=== PATIENT | male | born 1965 | race Caucasian/White ===

== ENCOUNTER 2020-03-12 18:09 | Emergency (ER) | payer OTHER, SELFPAY ==
[2020-03-12] VITALS (7 sets, daily range): BP systolic 139–172; BP diastolic 94–107; PULSE 62–78; RESP 11–21; TEMP 37.1; O2SAT 96–99
--- NOTE | ~2020-03-12 | CT_ITS ---
EXAMINATION: CT brain wo con DATE: 03/12/2020 20:02 INDICATION: Syncope. Dizziness and lightheadedness. TECHNIQUE: Computed tomography (CT) of the head was performed without intravenous contrast. The mA wa s adjusted according to patient size. Iterative reconstruction technique was employed. The dose-lengt h product was 681.00 mGy-cm. COMPARISON: None FINDINGS: There is no intracranial hemorrhage, acute infarction, or abnormal intracranial mass lesion . The ventricles are normal in size. There is mild mucosal thickening in the paranasal sinuses. The o rbits are normal. The mastoid air cells are normal. IMPRESSION: 1. Normal brain. Reviewed, dictated and finalized at location A. IMPRESSION: 1. Normal brain.
--- NOTE | 2020-03-12 18:11 | ECG_ITS ---
Measurements Intervals [place] Rate: 67 P: -5 WA: 151 QRS: -13 QRSD: 101 T: -5 QT: 377 QTc: 400 Interpretive Statements SINUS RHYTHM CONSIDER INFERIOR INFARCT, AGE INDETERMINATE ABNORMAL ECG Electronically Signed On 03-13-2020 6:55:25 CDT by Oren Muhammad D.O.
--- NOTE | 2020-03-12 18:34 | ED.DIZZY ---
HPI - Dizziness General Chief Complaint: Syncope <Radha Garcia MD - Last Filed: 03/12/20 19:12> Stated Complaint: SYNCOPAL EVENT <Radha Garcia MD - Last Filed: 03/12/20 19:12> Time Seen by Provider: 03/12/20 18:26 <Radha Garcia MD - Last Filed: 03/12/20 19:12> History of Present Illness HPI Narrative: Patient presents with his nurse , for being lightheaded and dizzy while cutting the grass today. She took his blood pressure and it was in the 170s. He has had a couple other episodes in the last couple days while sitting and working. He said it is part dizziness like the room is spinning, he had ear infections as a child, and has had some sinus infections since. He has had no cough or fever. He does not usually have problems in the heat. He sees the nurse practitioner Dr. Ferguson. His is a nurse at the [facility] in the emergency department. <Radha Garcia MD - Last Filed: 03/12/20 19:12> MD elicited complaint: dizziness and lightheadedness <Radha Garcia MD - Last Filed: 03/12/20 19:12> Pertinent past history: other (Vertigo) <Radha Garcia MD - Last Filed: 03/12/20 19:12> Onset (ago): day(s) <Radha Garcia MD - Last Filed: 03/12/20 19:12> Timing: sudden onset <Radha Garcia MD - Last Filed: 03/12/20 19:12> Severity: moderate <Radha Garcia MD - Last Filed: 03/12/20 19:12> Description: sense of movement <Radha Garcia MD - Last Filed: 03/12/20 19:12> History of similar symptoms: No <Radha Garcia MD - Last Filed: 03/12/20 19:12> Associated symptoms: other (Blurry vision on a walk the other night.) <Radha Garcia MD - Last Filed: 03/12/20 19:12> Related Data Home Medications: Home Medications Medication Instructions Recorded Confirmed coenzyme D27-[id number] E 100 mg-100 cap PO 02/04/20 unit capsule multivitamin 1 cap PO DAILY 02/04/20 naproxen 250 mg tablet 250 mg PO BID PRN 02/04/20 <Radha Garcia MD - Last Filed: 03/12/20 19:12> Allergies/Adverse Reactions: Allergies Allergy/AdvReac Type Severity Reaction Status Date / Time poison hever extract Allergy Unknown Rash Verified 02/04/20 12:42 No Known Allergies Allergy Verified 02/04/20 12:42 <Radha Garcia MD - Last Filed: 03/12/20 19:12> Review of Systems Review of Systems: Narrative: CONSTITUTIONAL: Denies fever, chills, or sweats. EYES: Denies visual changes, redness, or discharge. ENT: Denies rhinorrhea, congestion, sore throat, or otalgia. CARDIOVASCULAR: Denies chest pain, palpitations, or edema. RESPIRATORY: Denies cough or dyspnea. GASTROINTESTINAL: Denies abdominal pain, nausea, vomiting, or diarrhea. GENITOURINARY: Denies dysuria or hematuria. SKIN: Denies rash or itching. MUSCULOSKELETAL: Denies back pain, joint pain, or myalgia. NEUROLOGIC: Denies headache, numbness, or weakness. PSYCHIATRIC: Denies anxiety or depression. <Radha Garcia MD - Last Filed: 03/12/20 19:12> [facility] Surgical History Surgical History: Surgical History History of Achilles tendon repair <Radha Garcia MD - Last Filed: 03/12/20 19:12> Family History Family History: Family History (Updated 05/30/14 @ 07:13 by DOCTOR UNKNOWN) Sibling Family history of primary malignant neoplasm of liver Father Family history of coronary artery disease <Radha Garcia MD - Last Filed: 03/12/20 19:12> Social History Social History: Social History Smoking status: Former smoker Tobacco type: cigarettes and smokeless tobacco Smoking end date: 10/03/16 Alcohol intake: current Drinks per week: 4 Substance use: never Gender identity (if verbalized by the patient): Male <Radha Garcia MD - Last Filed: 03/12/20 19:12> Exam Narrative: Exam Narrative: GENERAL: Well-appearing, well-nourished, and in no acute distress. HEAD: Normo
[2020-03-12 18:49] LABS: Basophils Percent Auto 0.6 % (0.2-1.2); Eosinophils Absolute Auto 0.2 K/mm3 (0-0.3); Eosinophils Percent Auto 2.2 % (0-4.4); Hematocrit 45.5 % (42.0-52.0); Hemoglobin 15.8 g/dL (14.0-18.0); Immature Granulocyte Absolute 0.02 K/mm3 (0.00-0.031); Immature Granulocyte Percent A 0.3 % (0-0.5); Lymphocytes Absolute Auto 1.69 K/mm3 (0.9-3.2); Lymphocytes Percent Auto 24.7 % (18.3-44.2); Mean Corpuscular HGB Conc 34.7 g/dl (32-36); Mean Corpuscular Hemoglobin 30.6 pg (26-34); Mean Corpuscular Volume 88.2 fl (80-100); Monocytes Absolute Auto 0.5 K/mm3 (0.1-0.6); Neutrophils Absolute Auto 4.5 K/mm3 (1.3-6.7); Neutrophils Percent Auto 65.2 % (45.5-73.1); Platelet Count Result 235 k/mm3 (150-375); Red Blood Count 5.16 M/mm3 (4.6-6.20); Red Cell Distribution Width 12.4 % (11.5-14.5); White Blood Count 6.8 K/mm3 (4.5-10.0)
[2020-03-12] MEDS: MECLIZINE HCL 25 MG TABLET PO (18:59)
[2020-03-12] MEDS: SODIUM CHLORIDE 0.9% IV 1,000 ML 999 ML IV CONT (18:59)
[2020-03-12 19:03] LABS: Blood Urea Nitrogen 20 mg/dL (9-20); Carbon Dioxide 23 mmol/L (22-30); Chloride 104 mmol/L (98-107); Estimated CRCL calculation 94 ml/min; Estimated Glomerular Filt Rate > 60; Glucose 105 mg/dL (75-110); Potassium 4.2 mmol/L (3.4-5.0); Sodium 136 mmol/L (137-145)
--- NOTE | 2020-03-12 19:08 | PC.NURSE ---
PT INFORMED OF NEED FOR URINE, REFUSING CATH, STATES HE WILL ATTEMPT MARIXA.
--- NOTE | 2020-03-12 19:19 | PC.NURSE ---
pt informed we still need urine by this rn. pt receiving fluids and drinking water at this time, refused straight cath. urinal at bedside.
--- NOTE | 2020-03-12 19:27 | PC.NURSE ---
BEDSIDE REPORT GIVEN TO HENRIQUE KRUSE AT THIS TIME, SHE HAS ASSUMED PT CARE.
[2020-03-12 19:39] LABS: Add Urine Microscopic? NO; Appearance Urine Clear (Clear); Bilirubin Urine Negative (Negative); Blood Urine Negative (Negative); Color Urine Yellow (Yellow); Glucose Urine UA Negative (Negative); Ketones Urine Negative (Negative); Leukocyte Esterase Ur Negative LEU/UL (Negative); Nitrate Urine Negative (Negative); Protein Urine Negative (Negative); Specific Grav Ur 1.021 (1.001-1.035); Urobilinogen Urine Negative mg/dL (<2.0)
== END 2020-03-12 21:13 | disposition home or self-care (01) ==
PROVIDERS: Emergency Medicine; Emergency Provider Emergency Medicine; PCP Family Medicine
DX: R42 Dizziness and giddiness (principal); Z87.891 Personal history of nicotine dependence; R94.31 Abnormal electrocardiogram [ECG] [EKG]
CPT/HCPCS: 36415; 70450; 80048; 81003; 85025; 93005; 96360; 99284; A9270; J7030

== ENCOUNTER 2020-10-07 10:31 | Outpatient (NON) | payer OTHER, SELFPAY ==
[2020-10-07 23:29] LABS: SARS-CoV-2 RNA PCR Positive
== END 2020-10-07 10:32 ==
LOC: ANHCOVIDDT 10:33
PROVIDERS: PCP Family Medicine; Visit Provider Physician Assistant
DX: U07.1 COVID-19 (principal)
CPT/HCPCS: C9803; U0003

== ENCOUNTER 2022-04-07 15:47 | Outpatient (CLI) | payer OTHER, SELFPAY ==
--- NOTE | ~2022-04-07 | US_ITS ---
EXAMINATION: US soft tissue head and neck DATE: 04/07/2022 16:33 INDICATION: Localized swelling, mass or lump in the neck. TECHNIQUE: Grayscale and Doppler ultrasound images of the neck were obtained. COMPARISON: None. FINDINGS: The left lateral neck, superior to the clavicle in an area of swelling and fullness x2-3 da ys was interrogated sonographically, there is no cystic or solid mass present. Normal-appearing lymph node is present. No abnormal color flow. IMPRESSION: 1. No sonographic abnormality in the left lateral neck. Reviewed, dictated and finalized at location K.
== END 2022-04-07 15:48 | disposition home or self-care (01) ==
PROVIDERS: PCP Family Medicine; Visit Provider Nurse Practitioner Family
DX: R22.1 Localized swelling, mass and lump, neck (principal)
CPT/HCPCS: 76536

== ENCOUNTER 2022-04-09 08:37 | Outpatient (CLI) | payer OTHER, SELFPAY ==
--- NOTE | ~2022-04-09 | XR_ITS ---
EXAMINATION: XR shoulder LT min 2V INDICATION: Left shoulder pain TECHNIQUE: Four views of the left shoulder are submitted. COMPARISON: None FINDINGS: Normal alignment. No fracture. There is mild osteoarthritis of the glenohumeral and acromio clavicular joints. Soft tissues are unremarkable. IMPRESSION: 1. Mild osteoarthritis. Reviewed, dictated and finalized at location B. IMPRESSION: 1. Mild osteoarthritis.
--- NOTE | ~2022-04-09 | XR_ITS ---
EXAMINATION: XR sternoclavicular joint BI INDICATION: Left shoulder pain TECHNIQUE: Three views of the sternoclavicular joints are obtained. COMPARISON: None available FINDINGS: Bone alignment is normal. There is no fracture. The soft tissues are unremarkable. IMPRESSION: 1. Unremarkable sternoclavicular joints. Reviewed, dictated and finalized at location B.
== END 2022-04-09 08:38 | disposition home or self-care (01) ==
PROVIDERS: PCP Family Medicine; Visit Provider Nurse Practitioner Family
DX: R22.1 Localized swelling, mass and lump, neck (principal); M19.012 Primary osteoarthritis, left shoulder
CPT/HCPCS: 71130; 73030

== ENCOUNTER 2022-04-26 10:50 | Outpatient (CLI) | payer OTHER, SELFPAY ==
--- NOTE | ~2022-04-26 | MR_ITS ---
EXAMINATION: MR shoulder LT wo con DATE: 04/26/2022 11:39 INDICATION: Left shoulder pain TECHNIQUE: Magnetic resonance imaging (MRI) of the left shoulder was performed without intravenous co ntrast. Sequences included axial PD-weighted FS FSE, coronal oblique PD-weighted FS FSE, coronal obli que T2-weighted FS FSE, sagittal PD-weighted FS FSE, and sagittal T1-weighted SE. COMPARISON: Left shoulder radiographs dated 04/09/2022 FINDINGS: Coracoacromial arch: The acromion undersurface is curved in morphology (type II). The coracoacromial ligament is normal. M oderate acromioclavicular osteoarthritis. Asymmetric prominent subarticular edema with mild cystlike changes at the lateral head of the left clavicle relative to the minimal subarticular edema at the ac romion. This could be related to the osteoarthritis although differential would include superimposed distal clavicular osteolysis. Rotator cuff: Mild supraspinatus and infraspinatus tendinopathy. There is a very small mild intrasubstance tear zack suring approximately 2 to 3 mm AP and involving no greater than one third of the tendon thickness anamika ng the middle facet footplate of the anterior infraspinatus tendon. The teres minor tendon is normal. Subscapularis tendinopathy without tear. Normal rotator cuff muscle bulk and signal. Biceps tendon, glenoid labrum and glenohumeral cartilage: Long head of the biceps tendon is normal. There is a tear of the posterior glenoid labrum beginning a t the 11:00 position superiorly and extending to the 7:00 position inferiorly. There are small gangli on cysts along the peripheral margin of the 8:00-9:00 and at the 7:00 positions of the rim of the gle noid. Prominent marginal osteophytes which replaces a significant portion of the labral tissue at the anterior to inferior glenoid. Mild partial-thickness cartilage loss with smooth chondral surface and without degenerative subchondral changes at the posterior and inferior aspect of the glenoid. The hu meral cartilage is relatively preserved. Fluid: Physiologic amount of fluid in the glenohumeral joint and biceps tendon sheath. No loose osteochondr al bodies. No abnormal fluid signal in the subacromial/subdeltoid bursa consistent to suggest bursiti s. Bones: Normal marrow signal with no edema, fracture or abnormal marrow replacing process. IMPRESSION: 1. Mild glenohumeral osteoarthritis with tear of the posterior superior to posterior inferior glenoid labrum with a few peripheral small para labral cyst. 2. Mild subscapularis, supraspinatus and infraspinatus tendinopathy with very small mild partial-thic kness intrasubstance tear at the footplate of the anterior infraspinatus tendon. 3. Moderate acromioclavicular osteoarthritis with prominent asymmetric clavicular sided subarticular marrow edema which could be reactive related to the osteoarthritis. Differential would also include d istal clavicular osteolysis which can be seen with repetitive microtrauma. Reviewed, dictated and finalized at location A. IMPRESSION: 1. Mild glenohumeral osteoarthritis with tear of the posterior superior to post erior inferior glenoid labrum with a few peripheral small para labral cyst. 2. Mild subscapularis, supraspinatus and infraspinatus tendinopathy with very s mall mild partial-thickness intrasubstance tear at the footplate of the anterio r infraspinatus tendon. 3. Moderate acromioclavicular osteoarthritis with prominent asymmetric clavicul ar sided subarticular marrow edema which could be reactive related to the osteo arthritis. Differential would also include distal clavicular osteolysis which c an be seen with repetitive microtrauma.
== END 2022-04-26 10:51 | disposition home or self-care (01) ==
PROVIDERS: PCP Family Medicine; Visit Provider Nurse Practitioner Family
DX: M19.012 Primary osteoarthritis, left shoulder (principal)
CPT/HCPCS: 73221

== ENCOUNTER 2022-09-20 14:37 | Outpatient (CLI) | payer OTHER, SELFPAY ==
[2022-09-20 15:57] LABS: Influenza A QL RT-PCR Positive (Negative); Influenza B QL RT-PCR Negative (Negative); SARS-CoV-2 RNA PCR Negative
== END 2022-09-20 14:38 | disposition home or self-care (01) ==
LOC: ANHLAB 14:38
PROVIDERS: PCP Family Medicine; Visit Provider Physician Assistant
DX: R50.9 Fever, unspecified (principal); Z20.822 Contact with and (suspected) exposure to COVID-19
CPT/HCPCS: 87636

== ENCOUNTER → 2023-03-09 11:26 | Outpatient (CLI) | payer OTHER, SELFPAY ==
--- NOTE | ~2023-03-09 | XR_ITS ---
Left foot Technique: AP and lateral views were obtained. Clinical History: Pain Findings: No acute fracture or dislocation is seen. Osseous alignment is anatomic. Joint spaces are p reserved without erosive or degenerative change. Soft tissues are unremarkable. Impression: Unremarkable left foot radiographs. Reviewed, dictated and finalized at location . Impression: Unremarkable left foot radiographs.
== END ==
PROVIDERS: PCP Family Medicine; Visit Provider Family Medicine
DX: M79.673 Pain in unspecified foot (principal)
CPT/HCPCS: 73620

== ENCOUNTER 2023-03-25 07:57 | Outpatient (CLI) | payer OTHER, SELFPAY ==
--- NOTE | 2023-03-25 08:13 | ECG_ITS ---
Measurements Intervals [place] Rate: 70 P: 25 MI: 138 QRS: -14 QRSD: 116 T: -14 QT: 391 QTc: 423 Interpretive Statements SINUS RHYTHM CANNOT RULE OUT PREVIOUS INFERIOR WALL MA ABNORMAL ECG WARNING: DATA QUALITY MAY AFFECT INTERPRETATION COMPARED TO ECG 03/12/2020 18:18:57 NO SIGNIFICANT CHANGE Electronically Signed On 03-25-2023 16:09:52 CDT by Romeo Howell M.D.
== END 2023-03-25 07:58 | disposition home or self-care (01) ==
LOC: ANHSURGERY 08:01
PROVIDERS: PCP Family Medicine; Visit Provider Orthopaedic Surgery
DX: I10 Essential (primary) hypertension (principal); Z01.818 Encounter for other preprocedural examination; R94.31 Abnormal electrocardiogram [ECG] [EKG]
CPT/HCPCS: 93005

== ENCOUNTER 2023-03-29 00:57 | Day surgery (SDC) | payer OTHER, SELFPAY ==
--- NOTE | 2023-03-23 14:06 | PC.NURSE ---
Report to the Outpatient Waiting Room, entrance under the green pavilion located off [facility], at time 0830 on date 03/29/23. Planned Procedure Time: 1030. Time changes happen often and if your time is changed the preop area will call you the afternoon before. - You and your visitor will be asked to self-screen and do not enter if you have any COVID symptoms. - A mask is optional within the hospital at this time. Patients may have clear liquids (water, carbonated beverages, clear teas, apple juice) until 3 hours prior to surgery with a maximum of 20 ounces. 0730 - No food from midnight until time of surgery - Infants may have breast milk until 4 hours before surgery, formula 6 hours prior to surgery. - Children will be allowed to drink immediately following surgery. If applicable, please bring a bottle or sippy cup to assist with drinking. Juice, water, soda, and popsicles are readily available. For infants on formula, please bring formula the day of surgery. Pacifiers are allowed. Take the following medications with a SIP of water the morning of surgery: none DO NOT STOP ANY OF YOUR OTHER PRESCRIPTION MEDICATIONS PRIOR TO SURGERY ?EXCEPT THE FOLLOWING Medications to discontinue per physician fish oil, multivitamin, naproxen, ramipril, lisinopril Date to take last dose naproxen- last dose 03/22/23; mulivitamin, fish oil- stop taking on 03/26/23; lisinopril & ramipril 03/28/23 Please no make-up, nail mongolian, hairspray, perfume, deodorant, or body powder the day of surgery. No jewelry (including any body piercings) or valuables the day of surgery, leave them at home. Please take a shower or bath the night before, or the morning of, surgery with an antibacterial soap. Wear comfortable, loose fitting clothing. Children are encouraged to wear pajamas. - Jewelry must be removed prior to entering the operating room. Rings and piercings that are not removed may be cut off. - The hospital will not accept responsibility for valuables. - Please leave all valuables, including medications, at home the day of surgery. If you are going home after surgery, a licensed [employer] driver must drive you home. - NO public transportation without another adult if you receive anesthesia. - We recommend that an adult stay with you for 24 hours following discharge. - We also recommend that you do not drive, make important decision, drink alcoholic beverages, or take any drugs that were not prescribed by your health care provider for at least 24 hours after your discharge time. For Pediatric surgeries, we recommend two adults accompany the child home. Follow any additional instructions given to you from your surgeon. If you or anyone in your household have experienced Covid symptoms in the past week, please notify your surgeon or the nurse liaison at the phone number below for possible testing. Telephone instructions given to Hector Booth and asked if any additional questions and then verbalized understanding. Patient advised to call surgeon office or pre surgery nurse liaison [phone] if any additional questions.
[2023-03-23 14:10] VITALS: BMI 28.0
[2023-03-29] VITALS (8 sets, daily range): BP systolic 110–136; BP diastolic 69–89; PULSE 66–82; RESP 12–20; TEMP 36.4–36.5; O2SAT 96–100
--- NOTE | 2023-03-29 08:29 | WPDANESEPPF ---
Anes - Initial Pre Proc Eval Procedure: Operation Date: 03/29/23 10:30 Proposed Procedures p Left Shoulder Arthroscopy, Labral Debridement, Subacromial Decompression, Possible Rotator Cuff Repair - Hermilo Melton MD Date/Time: 03/29/23 08:29 Surgeon: Hermilo Melton MD Pre Op Diagnosis: impingement syndrome lft should. part rot. cuff te Patient Data Age: 57 Gender: M Height: 1.75 m Weight: 86.3 kg Allergies Allergy/AdvReac Type Severity Reaction Status Date / Time poison hever extract Allergy Unknown Rash Verified 03/29/23 09:15 Home Medications Medication Instructions Recorded Confirmed Type coenzyme S27-pbsgprx E 100 mg-100 1 cap PO DAILY 02/04/20 03/29/23 History unit capsule multivitamin 1 cap PO DAILY 02/04/20 03/29/23 History naproxen 250 mg tablet 250 mg PO BID 02/04/20 03/29/23 History ramipril 1.25 mg capsule 1.25 mg PO DAILY 07/14/21 03/29/23 History lisinopril 2.5 mg tablet 2.5 mg PO DAILY 11/03/22 03/29/23 History Patient hx anesthesia problems: none Family hx anesthesia problems: none Results Review: All pre-operative results and documents have been reviewed as part of the pre-operative evaluation. [facility] Past Medical History Medical History (Updated 03/29/23 @ 08:30 by Bernardino Sim DO) Aftercare following surgery History of stress test (~2018) HTN (hypertension) Hyperlipidemia REJI (obstructive sleep apnea) Surgical History Surgical History History of Achilles tendon repair (~2011) Family History Family History Sibling Family history of primary malignant neoplasm of liver Father Family history of coronary artery disease Social History Social History Social History: Smoking packs per day: 1 Smoking cigarettes per day: 20.0 Years smoked: 15 Smoking pack-years: 15.00 Smoking status: Former smoker Tobacco type: smokeless tobacco Second hand tobacco smoke exposure: No Smoking end date: 10/03/16 Alcohol intake: current Drinks per week: 5 Alcohol use details: 1-2 per week Substance use: never Substance use type: does not use Lack of Transportation: No Lack of Food: Never True Current Housing: I Have Housing Concerned About Future Housing: No Difficulty Paying Gas/Electric Bills: No Difficulty Paying for Meds: No Currently Unemployed: No Education: Bachelor's Degree Difficulty w/ Childcare or Family Care: No Living arrangements: alone Occupation/Education: occupation Gender identity (if verbalized by the patient): Male Sexual Orientation (if Verbalized by the Patient): Straight or Heterosexual Anes - Eval Final PreProcedure Day of Procedure 03/29/23 08:29 Patient weight: overweight Heart: regular rate and rhythm Lungs: clear to auscultation Airway: Mallampati scale class II Neurological: alert and oriented Last oral intake: >/= 8 hours ASA classification: III Emergent: no Anesthetic plan: proceed Anesthesia type and monitoring: general ETT and standard monitoring Results Review: All pre-operative results and documents have been reviewed as part of the pre-operative evaluation. Informed Consent: The patient's anesthetic plan and its attendant risks and benefits were discussed with the patient/family/POA. Questions were solicited and answers provided to the satisfaction of the patient/family/POA.
[2023-03-29] MEDS: ACETAMINOPHEN 500 MG TABLET 1000 MG PO (09:00)
[2023-03-29] MEDS: KETOROLAC 15 MG/ML VIAL (*BKC) IV PUSH (09:00)
[2023-03-29] MEDS: LACTATED RINGERS 1,000 ML 30 ML IV CONT ×2 (09:00→12:27)
--- NOTE | 2023-03-29 09:28 | WPDHPUPDATE1 ---
History and Physical Update Update Date/Time: 03/29/23 09:28 History and Physical has been reviewed, including an updated exam of the patient. There are NO changes in the patient's condition. Risks, benefits, and alternatives have been discussed and questions answered. Patient agrees to proceed with procedure.
--- NOTE | 2023-03-29 09:52 | WPDANESPNB ---
Anes - Peripheral Nerve Block Date/Time: 03/29/23 09:52 I have discussed with the patient/family/POA the placement of a peripheral nerve block for post-operative pain management, including associated risks, benefits, complications, and side effects. Alternative methods of post-operative analgesia were detailed. Questions were solicited and answers provided to the satisfaction of the patient/family/POA. Time-Out: A pre-procedural Time-Out was completed immediately before starting the procedure and confirmed: Patient Identification, Site, Procedure, Patient Position and the Availability of Requisite Equipment. Clinical Indications: Acute post-operative pain management requested by the operative surgeon. Nerve Block Insertion Note Anes-nerve block: interscalene left Patient position: supine Skin prep: chlorhexidine Needle: 22 gauge, stimulating, insulated echogenic needle. Needle length: 50 mm Technique: ultrasound Injectate: bupivacaine 0.5% with epi 5 mcg/ml (30cc- no epi) Observations: tolerated well Complications: none Procedure start time:: 946 Procedure end time:: 949
[2023-03-29] MEDS: ceFAZolin 2 GM/D5W 50 ML 2 GM/50 ML BAG IVPB (10:05)
[2023-03-29] MEDS: EPINEPHrine HCL INJ 1 MG/ML AMPUL 3 MG IRRIGATION (10:56)
--- NOTE | 2023-03-29 14:27 | W.PM.PROC2 ---
Procedure Note - Detailed Date of Procedure 03/29/23 Pre-op Diagnosis Left shoulder 1. Partial-thickness rotator cuff tear 2. Degenerative SLAP tear 3. Degenerative arthritis Post-op Diagnosis Same Procedure Performed Left shoulder 1. Arthroscopic rotator cuff repair 2. Arthroscopic biceps tenodesis with labral debridement and chondroplasty. 3. Arthroscopic subacromial decompression. Surgeon Hermilo Melton MD Anesthesia General and Regional Findings Significant degenerative changes were noted on the humerus and the posterior glenoid. Early areas of exposed bone in the posterior inferior glenoid. Delamination of the inferior cartilage was treated with debridement and chondroplasty. The posterior labrum in its entirety up to the biceps attachment was degenerative and unstable. This was debrided. It was elected to perform a biceps tenodesis with the loop and tack technique at the articular margin. The subscapularis was normal. The infraspinatus appeared normal. The supraspinatus had low-grade articular sided tearing at its anterior most aspect. Approximately 15%. This area was marked with a PDS suture. Bursal cuff appeared quite normal. The tissue was fairly robust and firm to palpation. There was concern about a day another nidus of partial intrasubstance tearing in the infraspinatus. Given the 2 areas of concern it was elected to repair with the Regeneten collagen implant. Subacromial decompression was performed as there was a type 2 acromion noted on MRI. Description of Procedure Preoperative antibiotics were given. An interscalene block was performed. The patient was carefully placed in the beach chair position. Bony prominences were carefully padded. The shoulder was prepped and draped in the usual sterile fashion. The articulating arm israel was used. Standard posterior and anterior arthroscopic portals were established. Inflow with obtain with the saline pump. The pathology noted above was treated with chondroplasty and debridement of the labrum followed by biceps tenodesis using the Arthrex loop and tack system. The biceps was then released from the superior labrum. Fairly low-grade articular sided tear at the anterior supraspinatus. The remaining cuff appeared good. The bursal side showed significant thickening of the bursa which was excised. The acromioplasty was performed and it was elected to proceed with the Regeneten repair. The tendon quality felt quite good. Multiple WILMA anchors were placed in the tendon through the implant. Laterally 2 peek anchors were used. The large size patch covered very well. The anterior aspect of the supraspinatus was previously marked with a marking needle to prevent malpositioning of the graft. The wounds were closed with interrupted 4-0 Monocryl suture followed by Steri-Strips. Sterile dressing and sling was applied. The patient was extubated and brought to the recovery room in stable condition. There were no complications. Implants Arthrex Loop N Tack SwiveLock anchor. [employer]hew Regeneten large size collagen implant. Six WILMA absorbable tendon anchors. Two nonabsorbable peek bone anchors. Estimated Blood Loss -30.0 Pathology None sent Complications No immediate complications Condition Stable Disposition PACU [facility] Billing Surgery - Charge Forward: Surgery Billing
== END 2023-03-29 14:05 | disposition home or self-care (01) ==
PROVIDERS: PCP Family Medicine; Visit Provider Orthopaedic Surgery
PROC: (CPT 29805; principal; 2023-03-29 10:30)
DX: M75.112 Incomplete rotator cuff tear or rupture of left shoulder, not specified as traumatic (principal); M75.82 Other shoulder lesions, left shoulder; M19.012 Primary osteoarthritis, left shoulder; G89.18 Other acute postprocedural pain; I10 Essential (primary) hypertension; E78.5 Hyperlipidemia, unspecified; G47.33 Obstructive sleep apnea (adult) (pediatric); Z87.891 Personal history of nicotine dependence
CPT/HCPCS: 29827; 29828; 29826; 64415; A9270; C1713; J0171; J0690; J1100; J1170; J1885; J2250; J2405; J2704; J2710; J3010; J7120

== ENCOUNTER 2024-06-08 11:15 | Outpatient (CLI) | payer OTHER, SELFPAY ==
--- NOTE | ~2024-06-08 | XR_ITS ---
AP and lateral views of the right hip Clinical history: Pain Findings: No acute fracture or dislocation is seen. Osseous alignment is anatomic. Right hip joint is preserved. Soft tissues are unremarkable. Impression: No significant abnormality is seen. Reviewed, dictated and finalized at location . Impression: No significant abnormality is seen.
== END 2024-06-08 11:16 | disposition home or self-care (01) ==
PROVIDERS: PCP Family Medicine; Visit Provider Student in an Organized Health Care Education/Training Program
DX: M25.551 Pain in right hip (principal)
CPT/HCPCS: 73502

== ENCOUNTER 2024-11-21 14:08 | Outpatient (CLI) | payer OTHER, SELFPAY ==
--- NOTE | ~2024-11-21 | MR_ITS ---
EXAMINATION: MR hip RT wo con DATE: 11/21/2024 14:50 INDICATION: Right hip pain TECHNIQUE: Magnetic resonance imaging (MRI) of the right hip was performed without intravenous contr ast. Sequences included full-field axial PD-weighted FS FSE and T1-weighted FSE, coronal of the pelvi s with PD-weighted FS FSE, small field of view of the right hip with axial PD-weighted FS FSE, sagit yuni PD-weighted FS FSE and coronal PD weighted FS FSE. Additional radial T1-weighted FGR oriented ort hogonal to the acetabular rim were obtained for evaluation of the labrum. COMPARISON: None FINDINGS: Bones/labrum/cartilage: Alignment is normal. No fracture, avascular necrosis or pathologic marrow replacing process. Severe degenerative disc height loss with fibrovascular degenerative endplate changes at L5-S1. Irregular de generative tearing of the superolateral to posterior glenoid labrum with moderate size marginal osteo phytes extending to the base of the posterior superior labrum. Mild osteoarthritis at the left hip wi th mild partial-thickness cartilage loss resulting in mild nonuniform joint space narrowing. No degen erative subchondral changes. Similar findings suggested but not diagnostically evaluated at the contr alateral left hip on the larger [id number] images. Fluid: Symmetric physiologic amount of fluid within both hip joints. Minimal fluid at the right greater troc hanter insertion of the right gluteus minimus and medius tendons consistent with mild bursitis. No ot her abnormal fluid collections. Soft tissues: Normal and symmetric muscle bulk in the pelvis and visualized proximal thighs. There is mild thickeni ng and mild increased signal at the right gluteus medius and minimus tendons consistent with mild ten dinopathy without discrete tear. The bilateral iliopsoas, rectus femoris, remaining gluteal and right proximal hamstring tendons are normal. There is mild tendinopathy without tear at the left ischial t uberosity origin of the conjoined tendon of the left biceps femoris and semitendinosus. The left semi membranosus tendon is normal. Limited evaluation of visceral organs of the pelvis is unremarkable. N o pathologically enlarged pelvic/inguinal lymphadenopathy. IMPRESSION: 1. Mild osteoarthritis at the right hip with likely chronic labral degeneration. Similar findings sug gested but not diagnostically evaluated the contralateral left hip on the larger [id number]-bg-glis images . 2. Right gluteus medias and minimus bursitis with mild tendinopathy without discrete tears of the rig ht gluteus medius and minimus tendons. 3. Mild tendinopathy without discrete tear at the left ischial tuberosity origin of the conjoined lef t biceps femoris/semitendinosus tendon. 4. Severe spondylosis at L5-S1. Reviewed, dictated and finalized at location A. 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 Mild osteoarthritis at the right hip with likely chronic labral degeneration . Similar findings suggested but not diagnostically evaluated the contralateral left hip on the larger niwkr-uj-axra images. 2. Right gluteus medias and minimus bursitis with mild tendinopathy without dis crete tears of the right gluteus medius and minimus tendons. 3. Mild tendinopathy without discrete tear at the left ischial tuberosity origi n of the conjoined left biceps femoris/semitendinosus tendon. 4. Severe spondylosis at L5-S1.
== END 2024-11-21 14:09 | disposition home or self-care (01) ==
LOC: MICIMG 14:08
PROVIDERS: PCP Family Medicine; Visit Provider Family Medicine
DX: M16.11 Unilateral primary osteoarthritis, right hip (principal); M70.71 Other bursitis of hip, right hip; M70.72 Other bursitis of hip, left hip; M76.01 Gluteal tendinitis, right hip; M47.817 Spondylosis without myelopathy or radiculopathy, lumbosacral region
CPT/HCPCS: 73721

== ENCOUNTER 2025-02-14 09:28 | Outpatient (CLI) | payer OTHER, SELFPAY ==
--- NOTE | ~2025-02-14 | XR_ITS ---
XR cervical spine min 6V Ordering provider: Kevon Cotto PA-C History: . M54.2 - Cervicalgia . Comparison: None. FINDINGS: VERTEBRAL BODIES: Normal height and alignment. No visible fracture or subluxation. The dens is intact . DISK SPACES: Severe narrowing of the disc spaces C3-C4, C4-C5, C5-C6 and C6-C7. Multilevel uncoverteb ral joint osteoarthritic changes. The vertebral foramina are narrowed which may be partly positional. PARASPINOUS SOFT TISSUES: No prevertebral soft tissue swelling. IMPRESSION: No acute osseous abnormality cervical spine. Multilevel severe degenerative disc disease. Reviewed, dictated and finalized at location A.
== END 2025-02-14 09:29 | disposition home or self-care (01) ==
LOC: MICIMG 09:29
PROVIDERS: PCP Family Medicine; Visit Provider Physician Assistant
DX: M50.31 Other cervical disc degeneration, high cervical region (principal); M50.321 Other cervical disc degeneration at C4-C5 level; M50.322 Other cervical disc degeneration at C5-C6 level; M50.323 Other cervical disc degeneration at C6-C7 level
CPT/HCPCS: 72052

== ENCOUNTER 2025-02-23 09:32 | Outpatient (CLI) | payer OTHER, SELFPAY ==
--- NOTE | ~2025-02-23 | MR_ITS ---
MRI of the cervical spine Clinical History: Neck pain, right arm numbness Technique: Axial T2-weighted and gradient images, and sagittal T1-weighted, T2-weighted, and STIR james ges were acquired. Findings: No fracture or subluxation seen in the cervical spine. Vertebral bodies maintain normal hei ght and alignment. No suspicious bone marrow signal abnormality seen. At C2-C3, there is no significant disc bulge or herniation. There is mild facet arthropathy, left wor se than right. No canal stenosis, cord compression, or neural foraminal narrowing. At C3-C4, there is severe degenerative disc narrowing. There is mild disc ossify complex and mild ousmane ateral facet arthropathy. There is left neural foraminal narrowing and possible minimal right neural foraminal narrowing. No canal stenosis or cord compression. At C4-C5, there is disc osteophyte complex with superimposed right paracentral to right foraminal dis c extrusion. There is severe right neural foraminal narrowing. Left neural foramen preserved. No arely l stenosis or cord compression. At C5-C6, there is advanced degenerative disc narrowing. There is disc osteophyte complex without fra nk canal stenosis or cord compression. There is probable mild bilateral neural foraminal narrowing. At C6-C7, there is advanced degenerative disc narrowing. There is minimal disc osteophyte complex. No canal stenosis or cord compression. Probable mild bilateral neural foraminal narrowing. No abnormal signal seen in the spinal cord. Paravertebral soft tissues are otherwise unremarkable. Impression: Right paracentral to right foraminal disc extrusion at C4-C5 with severe right neural foraminal narro wing at this level. Additional moderate degenerative changes throughout the cervical spine, as detailed above. Reviewed, dictated and finalized at [facility] Impression: Right paracentral to right foraminal disc extrusion at C4-C5 with severe right neural foraminal narrowing at this level. Additional moderate degenerative changes throughout the cervical spine, as deta iled above.
== END 2025-02-23 09:33 | disposition home or self-care (01) ==
LOC: MICIMG 09:43
PROVIDERS: PCP Family Medicine; Visit Provider Physician Assistant
DX: M50.30 Other cervical disc degeneration, unspecified cervical region (principal); R20.0 Anesthesia of skin; R20.2 Paresthesia of skin; M50.20 Other cervical disc displacement, unspecified cervical region
CPT/HCPCS: 72141

== ENCOUNTER 2025-05-15 16:43 | Outpatient (CLI) | payer OTHER, SELFPAY ==
--- OUTSIDE RECORDS SUMMARY | 2025-05-15 16:47 | XMS_ITS | Clinical Summary ---
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 Name Role Phone Leander Turner MD Primary Care Provider Allergies No known active allergies Medications benzonatate (TESSALON) 200 mg capsuleIndication s:Acute non-recurrent pansinusitis Take 1 capsule (200 mg total) by mouth 3 (three) times a day as needed for cough 30 capsule 4 Active Active Problems No known active problems Social History Tobacco Use Types Packs/Day Years Used Date Smoking Tobacco: Never Assessed Sex and Gender Information Value Date Recorded Sex Assigned at Not on file 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 Gender Identity Not on file Sexual Orientation Not on file Obstetrics History Last Filed Vital Signs Vital Sign Reading Time Taken Comments Blood Pressure 146/90 01/14/2024 10:44 AM CDT Pulse 60 01/14/2024 10:44 AM CDT Temperature 36.6 C (97.9 F) 01/14/2024 10:44 AM CDT Respiratory Rate 18 01/14/2024 10:44 AM CDT Oxygen Saturation 95% 01/14/2024 10:44 AM CDT Inhaled Oxygen Concentration - - Weight 89.8 kg (198 lb) 01/14/2024 10:44 AM CDT Height 175.3 cm (5' 9) 01/14/2024 10:44 AM CDT Body Mass Index 29.24 01/14/2024 10:44 AM CDT Plan of Treatment Health Maintenance Due Date Last Done Comments Colon Cancer Screening-Colonoscopy 1964 Depression Screening 1964 Hepatitis C Screening 1964 Prostate Cancer Screening-PSA 1964 DTaP/Tdap/Td Vaccine (1 - Tdap) 1975 Hepatitis B Screening 1982 Regular Well Visit/Exam 18-64 1982 Zoster Vaccine (1 of 2) 2014 Covid-19 Vaccine (3 - 2023-2 5 season) 2024 03/08/2021, 02/05/2021 Influenza Vaccine (#1) 2025 , 07/05/2020, 10/06/2018 Pneumococcal vaccine <65 Aged Out No longer eligible based on patient's age to complete this topic Insurance [employer] CLAIM[employer] Care Teams Plasterer Apprentice Relationship Specialty Start Date End Date Leander Turner MD [address] [place] [address] PCP - General Family Medicine 03/17/20
--- OUTSIDE RECORDS SUMMARY | 2025-05-15 16:47 | XMS_ITS | Clinical Summary ---
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 Role Phone Unavailable Primary Care Provider Unavailabl e Social History Tobacco Use Types Packs/Day Years Used Date Smoking Tobacco: Never Assessed Sex and Gender Information Value Date Recorded Sex Assigned at Not on file Legal Sex Male 7:00 PM CDT Gender Identity Not on file Sexual Orientation Not on file Plan of Treatment Health Maintenance Due Date Last Done Comments Colorectal Cancer Screening Colonoscopy (10 Years) 1964 Annual Physical 1967 Hepatitis C 1982 DTaP, Tdap and Td Vaccines ( 1 - Tdap) 1983 Pneumococcal Vaccine: 50+ Ye ars (1 of 1 - PCV) 2014 Zoster Vaccines (1 of 2) 2014 COVID-19 Vaccine ( - 2023-2 5 season) 2024 RSV Immunization or 60+ Years (1 - 1-dose 75+ series) 2039 Meningococcal B Vaccine Aged Out No l onger eligible based on patient's age to complete this topic Meningococcal Vaccine Aged Out No varun mckinley eligible based on patient's age to complete this topic RSV Immunizations Under 20 Months Aged Out No longer eligible based on patient's age to complete this topic
--- OUTSIDE RECORDS SUMMARY | 2025-05-15 16:47 | XMS_ITS | Continuity of Care Document ---
Author Name [facility] Organization [facility] Care Team Providers Care Labor Expediter Name Role Phone [facility] Unavailable Unavailable Problems Combined list of problems from Department of Defense and Veterans Affairs facilities. It does not include entries that were removed or entered in error. 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 [facility] Family history of cancer of colon Active Condition Aug 24, 2023 Entered By: JOSE KIRK Comment: brother [facility] Hearing loss (SNOMED CT [id number]) Active Condition [facility] Hip pain Active Condition [facility] Lateral epicondylitis Active Condition Nov 21, 2015 Entered By: JOSE KIRK Comment: right elbow [facility] Lipidemia Active Condition [facility] Nontraumatic rupture of achilles tendon (ICD-9-CM 727.67) Active Condition [facility] Pain of bilateral knee joints Active Condition Nov 21, 2015 Entered By: JOSE KIRK Comment: bilateral [facility] Routine General Medical Examination at a Health Care Facility * Active Condition [facility] Sleep Apnea (SCT [id number]) Active Condition [facility] visit for: services physical Inactive Condition DD [id number] signed [facility] LATERAL EPICONDYLITIS (TENNIS ELBOW) RIGHT Active Condition [facility] Occupational Therapy Inactive Condition Goals: (1 week) Patient will independently comply with splint wear/care to prevent increase in symptoms. (6 weeks) Patient will complete ADLs, IADLs, leisure, work activities without pain, demonstrating functional ROM, muscle performance and endurance. DoD joint pain, localized in the elbow Active Condition [facility] Other Physical Therapy Inactive Condition DoD MEDIAL EPICONDYLITIS Active Condition DoD ALLERGIC RHINITIS Active Condition DoD Allergen Desensitization Active Condition DoD SLEEP APNEA OBSTRUCTIVE Active Condition screening for REJI - needs sleep study DoD Macules And Papules Active Condition DoD NON-NEOPLASTIC NEVUS Active Condition Dermatofibroma DoD PATELLOFEMORAL SYNDROME Active Condition DoD LATERAL EPICONDYLITIS (TENNIS ELBOW) Active Condition DoD ALLERGIC RHINITIS Active Condition Se asonal, due to molds and pollens. Also sensitive to cats. DoD EPIDERMAL INCLUSION CYST Active Condition left upper ca lf, 1cm, brown non tender will f/u for excis, bx with procedure DoD joint pain, localized in the knee Active Condition DoD SEBACEOUS CYST Active Condition DoD visit for: occupational health / fitness exam Inactive Condition DoD Diagnosis: ICD-10-CM Z02.5 Encounter for examination for participation in sport Active Diagnosis [facility] Diagnosis: ICD-10-CM H04.123 Dry eye syndrome of bilateral lacrimal glands Active Diagnosis [facility] Diagnosis: ICD-10-CM R54 Age-related physical debility Active Diagnosis [facility] Diagnosis: ICD-10-CM M25.561 Pain in right knee Active Diagnosis [facility] Diagnosis: ICD-10-CM K63.5 Polyp of colon Active Diagnosis [facility] Diagnosis: ICD-10-CM Z12.11 Encounter for screening for malignant neoplasm of colon Active Diagnosis [facility] Medications Combined list of outpatient medications from Department of Defense and [facility] Affairs facilities.Medications provided include 1) outpatient medications from the last 15 months, and 2) patient-reported medications. Medication Details Route Status Patient Instructions Prescription Expires Prescription Number Last Dispense Date Ordering Provider Order Date Order Qty Source CARBOXYMETH YLCELLULOSE NA 0.5% SOLN,OPH INSTILL 1 DROP IN BOTH EYES FOUR TIMES A DAY NEEDED FOR DRY EYE(S) OPHTHA LMIC ACTIVE 02/23/2026 [id number] 5 MAISHAARIC M 2024 45 [facility] CETIRIZINE (U/D) 10 MG ORAL TAB TAKE ONE TABLET BY MOUTH ONCE A DAY FOR ALLERGY SYMPTOMS . 08/24/2024 [id number] 4 JOSE KIRK [address] [place] [address] Divisio n CETIRIZINE HCL 10MG TAB TAKE ONE TABLET BY MOUTH ONCE A DAY FOR ALLERGY SYMPTOMS . ORAL ACTIVE 06/30/2025 [id number] 5 JOSE KIRK [address] [place] [address] CETIRIZINE HCL 10MG TAB TAKE ONE TABLET BY MOUTH ONCE A DAY FOR ALLERGY SYMPTOMS . ORAL DISCONT INUED 08/24/2024 [id number] 4 JOSE KIRK [address] [place] [address] DOXYCYCLINE HYCLATE (DOXYCYCLIN E HYCLATE), 100 MG, TABLET, ORAL, RAMYA PHARMACEUTI , 500 ea. BOTTLE Active [id number] 2023 20 Pharmac y [facility] y RAMIPRIL 1.25 MG ORAL CAP TAKE ONE CAPSULE BY MOUTH ONCE A DAY TO LOWER BLOOD PRESSURE 08/24/2024 [id number] 4 JOSE KIRK [address] [place] [address] n RAMIPRIL 1.25MG CAP TAKE ONE CAPSULE BY MOUTH ONCE A DAY TO LOWER BLOOD PRESSURE ORAL ACTIVE 06/30/2025 [id number] 5 JOSE KIRK [address] [place] [address] RAMIPRIL 1.25MG CAP TAKE ONE CAPSULE BY MOUTH ONCE A DAY TO LOWER BLOOD PRESSURE ORAL DISCONT INUED 08/24/2024 [id number] 4 JOSE KIRK [address] [place] [address] Allergies, Adverse Reactions, Alerts Combined list of allergies from Department of Defense and Veterans Affairs facilities. It does not include entries that were removed or entered in error. Substance Category Reaction Severity Reaction type Status Date Reported Comments Source NO OUTPUT FOR NCID [id number] Drug allergy (disorder) active 08/30/2005 [facility] [place] [facility] ([facility] Immunizations Combined list of available immunizations from the Department of Defense and Veterans Affairs facilities. Immunization Series Date Given Administered By Site Reaction Lot Number CVX Code Drug Lining Presser Status Comments Source INFLUENZA, SPLIT VIRUS, TRIVALENT, PF 2023 [place] [id number] 140 complet ed [facility] AT [facility] PNEUMOCOCCAL CONJUGATE PCV20, POLYSACCHARID E [id number] CONJUGATE, ADJUVANT, PF 2023 CLARA WARD H R LEFT DELTO ID [id number] 216 complet ed [facility] AT [facility] INFLUENZA, INJECTABLE, QUADRIVALENT, PRESERVATIVE FREE 2021 150 complet ed [facility] ZOSTER RECOMBINANT 2 2021 187 complet ed [facility] ZOSTER RECOMBINANT 1 2021 187 complet ed [facility] INFLUENZA, INJECTABLE, QUADRIVALENT, PRESERVATIVE FREE 2020 150 complet ed [facility] COVID Vaccine Moderna 2020 207 complet ed COVID Vaccine Moderna 03/08/21 Given Ambulat ory Pharmac y COVID-19, mRNA, LNP-S, PF, 100 mcg or 50 mcg dose 2020 ALUL, () Not Given COVID-19, mRNA, LNP-S, PF, 100 mcg or 50 mcg dose DoD COVID Vaccine Moderna 2020 207 complet ed COVID Vaccine Moderna 02/05/21 Given Ambulat ory Pharmac y COVID-19, mRNA, LNP-S, PF, 100 mcg or 50 mcg dose 2020 ALUL, () Not Given COVID-19, mRNA, LNP-S, PF, 100 mcg or 50 mcg dose DoD INFLUENZA, UNSPECIFIED FORMULATION 2019 88 complet ed [facility] influenza, injectable, quadrivalent- pf 2019 150 Gl[employer] ne complet ed influenza , injectabl e, quadrival ent-pf 07/05/20 Given Ambulat ory Pharmac y influenza, injectable, quadrivalent, preservative free 2019 ALUL, () Not Given influenza , injectabl e, quadrival ent, preservat jennifer free DoD INFLUENZA, INJECTABLE, QUADRIVALENT, PRESERVATIVE FREE 2018 150 complet ed [facility] influenza, injectable, quadrivalent- pf 2018 150 sanofi pasteur complet ed influenza , injectabl e, quadrival ent-pf 10/06/18 Given Ambulat ory Pharmac y PNEUMOCOCCAL CONJUGATE PCV 13 2015 133 complet ed [facility] TDAP 2015 115 complet ed Left Deltoid [facility] tetanus, diphtheria, acellular pertu is 2011 115 complet ed tetanus, diphtheri a, acellular pertussis 05/15/12 Given Ambulat ory Pharmac y INFLUENZA, UNSPECIFIED FORMULATION 2011 88 complet ed [facility] influenza virus vaccine,split 2004 [id number] 15 sanofi pasteur complet ed influenza virus vaccine,s plit 08/18/05 Given Ambulat ory Pharmac y influenza virus vaccine,split 2004 zzRig ht Arm [id number] 15 sanofi pasteur complet ed influenza virus vaccine,s plit 08/18/05 Given Ambulat ory Pharmac y influenza virus vaccine, split virus (incl. purified surface antigen)-reti red CODE 1 2004 Unknown, Provider [id number] 15 Sanofi Pasteur ([facility]) complet ed influenza virus vaccine, split virus (incl. purified surface antigen)- retired CODE [facility] tetanus-dipht h toxoids (Td) adult/adol 2004 [id number] 09 sanofi pasteur complet ed tetanus-d iphth toxoids (Td) adult/ado l 03/09/05 Given Ambulat ory Pharmac y tetanus-dipht h toxoids (Td) adult/adol 2004 zzLef t Arm [id number] 09 sanofi pasteur complet ed tetanus-d iphth toxoids (Td) adult/ado l 03/09/05 Given Ambulat ory Pharmac y tetanus and diphtheria toxoids, adsorbed, preservative free, for adult use (2 Lf of tetanus toxoid and 2 Lf of diphtheria toxoid) 1 2004 Unknown, Provider [id number] 09 Sanofi Pasteur ([facility]MC) complet ed tetanus and diphtheri a toxoids, adsorbed, preservat jennifer free, for adult use (2 Lf of tetanus toxoid and 2 Lf of diphtheri a toxoid) DoD influenza virus vaccine,split 2003 [id number] 15 sanofi pasteur complet ed influenza virus vaccine,s plit 07/31/04 Given Ambulat ory Pharmac y influenza virus vaccine,split 2003 [id number] 15 sanofi pasteur complet ed influenza virus vaccine,s plit 07/31/04 Given Ambulat ory Pharmac y influenza virus vaccine, split virus (incl. purified surface antigen)-reti red CODE 1 2003 Unknown, Provider [id number] 15 Sanofi Pasteur ([facility]MC) complet ed influenza virus vaccine, split virus (incl. purified surface antigen)- retired CODE DoD anthrax vaccine 2003 [id number] [employer] complet ed anthrax vaccine 06/19/04 Given Ambulat ory Pharmac y anthrax vaccine 2003 zzLef t Arm [id number] [employer] complet ed anthrax vaccine 06/19/04 Given Ambulat ory Pharmac y anthrax vaccine 3 2003 Unknown, Provider [id number] [employer] Cecille ([facility]) complet ed anthrax vaccine DoD vaccinia (smallpox) vaccine 2003 zzLef t Arm [id number] 75 [employer] complet ed Patient Tolerance : M Ambulat ory Pharmac y anthrax vaccine 2003 zzRig ht Arm [id number] 24 [employer] complet ed anthrax vaccine 05/27/04 Given Ambulat ory Pharmac y anthrax vaccine 2003 [id number] [employer] complet ed anthrax vaccine 05/27/04 Given Ambulat ory Pharmac y vaccinia (smallpox) vaccine 2003 [id number] 75 [employer] complet ed vaccinia (smallpox ) vaccine 05/27/04 Given Ambulat ory Pharmac y anthrax vaccine 2 2003 Unknown, Provider [id number] [employer] [place] ([facility]) complet ed anthrax vaccine DoD vaccinia (smallpox) vaccine 1 2003 Unknown, Provider [id number] [facility] complet ed vaccinia (smallpox ) vaccine DoD typhoid vaccine, inactivated 2003 zzRig ht Arm [id number] 101 sanofi pasteur complet ed typhoid vaccine, inactivat ed 05/08/04 Given Ambulat ory Pharmac y typhoid vaccine, inactivated 2003 [id number] sanofi pasteur complet ed typhoid vaccine, inactivat ed 05/08/04 Given Ambulat ory Pharmac y anthrax vaccine 2003 zzLef t Arm [id number] 24 [employer] complet ed anthrax vaccine 05/08/04 Given Ambulat ory Pharmac y anthrax vaccine 2003 [id number] [employer] complet ed anthrax vaccine 05/08/04 Given Ambulat ory Pharmac y anthrax vaccine 1 2003 Unknown, Provider [id number] [employer] [facility] ([facility]) complet ed anthrax vaccine DoD typhoid vaccine, parenteral, other than acetone-kille d, dried 1 2003 Unknown, Provider [id number] 41 Sanofi Pasteur ([facility]) complet ed typhoid vaccine, parentera l, other than acetone-k illed, dried DoD influenza virus vaccine, whole virus 2002 [id number] 16 sanofi pasteur complet ed influenza virus vaccine, whole virus 07/23/03 Given Ambulat ory Pharmac y influenza virus vaccine, whole virus 2002 zzLef t Arm [id number] 16 sanofi pasteur complet ed influenza virus vaccine, whole virus 07/23/03 Given Ambulat ory Pharmac y influenza virus vaccine, whole virus 1 2002 Unknown, Provider [id number] 16 Sanofi Pasteur ([facility]) complet ed influenza virus vaccine, whole virus DoD influenza virus vaccine, whole virus 2001 [id number] 16 [facility] complet ed influenza virus vaccine, whole virus 08/06/02 Given Ambulat ory Pharmac y influenza virus vaccine, whole virus 1 2001 Unknown, Provider [id number] 16 [facility] ([facility]) complet ed influenza virus vaccine, whole virus DoD influenza virus vaccine, whole virus 2000 [id number] 16 sanofi pasteur complet ed influenza virus vaccine, whole virus 08/02/01 Given Ambulat ory Pharmac y influenza virus vaccine, whole virus 2000 zzLef t Arm [id number] 16 sanofi pasteur complet ed influenza virus vaccine, whole virus 08/02/01 Given Ambulat ory Pharmac y influenza virus vaccine, whole virus 1 2000 Unknown, Provider [id number] 16 Sanofi Pasteur ([facility]) complet ed influenza virus vaccine, whole virus DoD influenza virus vaccine, whole virus 2000 Ruthie muir Arm [id number] 16 [facility] complet ed influenza virus vaccine, whole virus 10/06/00 Given Ambulat ory Pharmac y influenza virus vaccine, whole virus 2000 [id number] 16 [facility] complet ed influenza virus vaccine, whole virus 10/06/00 Given Ambulat ory Pharmac y influenza virus vaccine, whole virus 1 2000 Unknown, Provider [id number] [facility] complet ed influenza virus vaccine, whole virus DoD tuberculin purified protein derivative 1999 [id number] 96 [facility] Patient Tolerance : Negative Ambulat ory Pharmac y tuberculin purified protein derivative 1999 [id number] 96 [facility] ed tuberculi n purified protein derivativ e 01/13/00 Given Ambulat ory Pharmac y tuberculin skin test; purified protein derivative solution, intradermal 1 1999 Unknown, Provider [id number] 96 [facility] complet ed tuberculi n skin test; purified protein derivativ e solution, intraderm al DoD influenza virus vaccine, whole virus 1998 [id number] 16 [facility] complet ed influenza virus vaccine, whole virus 08/06/99 Given Ambulat ory Pharmac y influenza virus vaccine, whole virus 1 1998 Unknown, Provider [id number] 16 [facility] complet ed influenza virus vaccine, whole virus DoD typhoid vaccine, inactivated 1998 [id number] 101 [employer] complet ed typhoid vaccine, inactivat ed 05/26/99 Given Ambulat ory Pharmac y typhoid vaccine, inactivated 1998 [id number] 101 [employer] complet ed typhoid vaccine, inactivat ed 05/26/99 Given Ambulat ory Pharmac y typhoid vaccine, parenteral, other than acetone-kille d, dried 1998 Unknown, Provider [id number] 41 Merck ([facility]D) complet ed typhoid vaccine, parentera l, other than acetone-k illed, dried DoD tuberculin purified protein derivative 1998 [id number] 96 [facility] complet ed Patient Tolerance : Negative Ambulat ory Pharmac y tuberculin skin test; purified protein derivative solution, intradermal 1 1998 Unknown, Provider [id number] 96 [facility] complet ed tuberculi n skin test; purified protein derivativ e solution, intraderm al DoD influenza virus vaccine, whole virus [id number] 16 [facility] complet ed influenza virus vaccine, whole virus 07/10/98 Given Ambulat ory Pharmac y influenza virus vaccine, whole virus [id number] 16 [facility] complet ed influenza virus vaccine, whole virus 07/10/98 Given Ambulat ory Pharmac y influenza virus vaccine, whole virus 1 1997 Unknown, Provider [id number] 16 Enrique ([facility]) complet ed influenza virus vaccine, whole virus DoD tuberculin purified protein derivative 1997 [facility] [place], [place] [address]t [facility] complet ed tuberculi n purified protein derivativ e 12/11/97 Given Ambulat ory Pharmac y tuberculin purified protein derivative 1997 [facility] [place], [place] [address]aut Labs complet ed Patient Tolerance : Negative Ambulat ory Pharmac y tuberculin skin test; purified protein derivative solution, intradermal 1 1997 Unknown, Provider [id number] [place], [place] [address]t (CON) complet ed tuberculi n skin test; purified protein derivativ e solution, intraderm al DoD influenza virus vaccine, whole virus 19962624 [id number] 16 [employer] complet ed influenza virus vaccine, whole virus 07/25/97 Given Ambulat ory Pharmac y influenza virus vaccine, whole virus 19967575 [id number] 16 [employer] complet ed influenza virus vaccine, whole virus 07/25/97 Given Ambulat ory Pharmac y influenza virus vaccine, whole virus 1 1996 Unknown, Provider [id number] 16 Enrique (Inactive) ([place]) complet ed influenza virus vaccine, whole virus DoD tuberculin purified protein derivative 1996 [facility] complet ed Patient Tolerance : Negative Ambulat ory Pharmac y tuberculin purified protein derivative 1996 96 [facility] complet ed tuberculi n purified protein derivativ e 12/10/96 Given Ambulat ory Pharmac y tuberculin skin test; purified protein derivative solution, intradermal 1 1996 Unknown, Provider CON 96 [facility] complet ed tuberculi n skin test; purified protein derivativ e solution, intraderm al DoD influenza virus vaccine, whole virus [id number] 16 [employer] complet ed influenza virus vaccine, whole virus 08/02/96 Given Ambulat ory Pharmac y influenza virus vaccine, whole virus 19959751 [id number] 16 [employer] complet ed influenza virus vaccine, whole virus 08/02/96 Given Ambulat ory Pharmac y influenza virus vaccine, whole virus 1 1995 Unknown, Provider [id number] 16 En[facility] (Inactive) ([place]) complet ed influenza virus vaccine, whole virus DoD typhoid, parenteral, AKD 1995 53 complet ed typhoid, parentera l, AKD 05/28/96 Given Ambulat ory Pharmac y typhoid, parenteral, AKD 1995 53 complet ed typhoid, parentera l, AKD 05/28/96 Given Ambulat ory Pharmac y typhoid vaccine, parenteral, acetone-kille d, dried ([place] ) 2 1995 Unknown, Provider 53 () complet ed typhoid vaccine, parentera l, acetone-k illed, dried ([place] ) DoD hepatitis A adult vaccine 19958801 [id number] 52 [employer] complet ed hepatitis A adult vaccine 03/15/96 Given Ambulat ory Pharmac y hepatitis A adult vaccine 19953490 [id number] 52 [employer] complet ed hepatitis A adult vaccine 03/15/96 Given Ambulat ory Pharmac y hepatitis A vaccine, adult dosage 2 1995 Unknown, Provider [id number] 52 Enrique (Inactive) ([place]) complet ed hepatitis A vaccine, adult dosage [facility] meningococcal polysaccharid e (MPSV4) 19951666 [id number] 32 [employer] complet ed meningoco ccal polysacch aride (MPSV4) 12/22/95 Given Ambulat ory Pharmac y meningococcal polysaccharid e (MPSV4) 19955557 [id number] 32 [employer] complet ed meningoco ccal polysacch aride (MPSV4) 12/22/95 Given Ambulat ory Pharmac y meningococcal polysaccharid e vaccine (MPSV4) 1 1995 Unknown, Provider [id number] 32 [employer] (Inactive) ([place]) complet ed meningoco ccal polysacch aride vaccine (MPSV4) [facility] tetanus-dipht h toxoids (Td) adult/adol 1994 09 complet ed tetanus-d iphth toxoids (Td) adult/ado l 02/02/95 Given Ambulat ory Pharmac y tetanus and diphtheria toxoids, adsorbed, preservative free, for adult use (2 Lf of tetanus toxoid and 2 Lf of diphtheria toxoid) 1 1994 Unknown, Provider 09 () complet ed tetanus and diphtheri a toxoids, adsorbed, preservat jennifer free, for adult use (2 Lf of tetanus toxoid and 2 Lf of diphtheri a toxoid) [facility] influenza virus vaccine, whole virus [id number] [id number] 16 [facility] complet ed influenza virus vaccine, whole virus 07/16/94 Given Ambulat ory Pharmac y influenza virus vaccine, whole virus 1 1993 Unknown, Provider [id number] 16 [facility] (Inactive) ([place]) complet ed influenza virus vaccine, whole virus [facility] typhoid vaccine, inactivated 19929140 [id number] 101 [facility] complet ed typhoid vaccine, inactivat ed 05/21/93 Given Ambulat ory Pharmac y typhoid vaccine, live, oral 19922894 [id number] 25 [facility] complet ed typhoid vaccine, live, oral 05/21/93 Given Ambulat ory Pharmac y typhoid vaccine, inactivated 19928303 [id number] 101 [employer] complet ed typhoid vaccine, inactivat ed 05/21/93 Given Ambulat ory Pharmac y typhoid vaccine, live, oral 19925439 [id number] 25 [facility] complet ed typhoid vaccine, live, oral 05/21/93 Given Ambulat ory Pharmac y typhoid vaccine, live, oral 1 1992 Unknown, Provider [id number] 25 [employer] ([place]active) ([place] complet ed typhoid vaccine, live, oral [facility] typhoid vaccine, parenteral, other than acetone-kille d, dried 1992 Unknown, Provider [id number] 41 [employer] ([place]active) ([place] complet ed typhoid vaccine, parentera l, other than acetone-k illed, dried [facility] yellow fever vaccine 19903068 [id number] 37 [employer] complet ed yellow fever vaccine 04/09/91 Given Ambulat ory Pharmac y yellow fever vaccine 19905064 [id number] 37 [employer] complet ed yellow fever vaccine 04/09/91 Given Ambulat ory Pharmac y yellow fever vaccine 1 1990 Unknown, Provider [id number] [employer] ([place]active) ([place] complet ed yellow fever vaccine DoD tetanus-dipht h toxoids (Td) adult/adol 1988 09 complet ed tetanus-d iphth toxoids (Td) adult/ado l 08/05/89 Given Ambulat ory Pharmac y tetanus-dipht h toxoids (Td) adult/adol 1988 09 complet ed tetanus-d iphth toxoids (Td) adult/ado l 08/05/89 Given Ambulat ory Pharmac y tetanus and diphtheria toxoids, adsorbed, preservative free, for adult use (2 Lf of tetanus toxoid and 2 Lf of diphtheria toxoid) 1 1988 Unknown, Provider 09 () complet ed tetanus and diphtheri a toxoids, adsorbed, preservat jennifer free, for adult use (2 Lf of tetanus toxoid and 2 Lf of diphtheri a toxoid) DoD poliovirus vaccine, live, oral 1984 02 complet ed polioviru s vaccine, live, oral 04/02/85 Given Ambulat ory Pharmac y poliovirus vaccine, live, oral 1984 02 complet ed polioviru s vaccine, live, oral 04/02/85 Given Ambulat ory Pharmac y trivalent poliovirus vaccine, live, oral 1 1984 Unknown, Provider 02 () complet ed trivalent polioviru s vaccine, live, oral DoD Results Combined list of recent chemistry, hematology and other laboratory results from Department of Defense and Veterans Affairs, ranging from 15 months to all on record, depending upon the facility. Order Name Results Value Reference Range Date Interpretation Specimen Comments Source LIPID PANEL (STL) CHOLESTEROL [MASS/VOLUM E] IN SERUM OR PLASMA 219 mg/dL 0 - 200 06/29 H Specimen Type: PLASMA Comment: LDL calculation invalid when Triglyceride exceeds 250 mg/dl Ordering Provider: JUANITA KIRK Report Released Date/Time: Jun 29, 2024 12:44 PM Reporting Lab: [facility] [address] [address] Performing Lab: [address] [address] [facility] LIPID PANEL (STL) TRIGLYCERID E [MASS/VOLUM E] IN SERUM OR PLASMA 287 mg/dL 0 - 150 06/29 H Specimen Type: PLASMA Comment: LDL calculation invalid when Triglyceride exceeds 250 mg/dl Ordering Provider: JUANITA KIRK Report Released Date/Time: Jun 29, 2024 12:44 PM Reporting Lab: [address] [address] Performing Lab: [address] [address] [facility] LIPID PANEL (STL) CHOLESTEROL IN LDL [MASS/VOLUM E] IN SERUM OR PLASMA BY DIRECT ASSAY 148 mg/dL 100 06/29 Specimen Type: PLASMA Comment: LDL calculation invalid when Triglyceride exceeds 250 mg/dl Ordering Provider: JUANITA KIRK Report Released Date/Time: Jun 29, 2024 12:44 PM Reporting Lab: [address] [address] Performing Lab: [address] [address] [facility] LIPID PANEL (STL) CHOLESTEROL IN LDL [MASS/VOLUM E] IN SERUM OR PLASMA BY CALCULATION commen tmg/dL 06/29 Specimen Type: PLASMA Comment: LDL calculation invalid when Triglyceride exceeds 250 mg/dl Ordering Provider: JUANITA KIRK Report Released Date/Time: Jun 29, 2024 12:44 PM Reporting Lab: [address] [address] Performing Lab: [address] [address] [facility] LIPID PANEL (STL) CHOLESTEROL IN HDL [MASS/VOLUM E] IN SERUM OR PLASMA 41 mg/dL 40 06/29 Specimen Type: PLASMA Comment: LDL calculation invalid when Triglyceride exceeds 250 mg/dl Ordering Provider: SIMMERING,JA MES Report Released Date/Time: Jun 29, 2024 12:44 PM Reporting Lab: [address] [address] Performing Lab: [place] [address] [facility] [address] [facility] COMPREHENS JENNIFER METABOLIC PANEL CREATININE [MASS/VOLUM E] IN SERUM OR PLASMA 0.88 mg/dL 0.7 - 1.3 06/29 Specimen Type: PLASMA Comment: LDL calculation invalid when Triglyceride exceeds 250 mg/dl Ordering Provider: JUANITA KIRK MES Report Released Date/Time: Jun 29, 2024 12:44 PM Reporting Lab: [address] [address] Performing Lab: [address] [phone] [place] [address] [facility] COMPREHENS JENNIFER METABOLIC PANEL UREA NITROGEN [MASS/VOLUM E] IN SERUM OR PLASMA 19.8 mg/dL 9.0 - 25.0 06/29 Specimen Type: PLASMA Comment: LDL calculation invalid when Triglyceride exceeds 250 mg/dl Ordering Provider: JUANITA KIRK MES Report Released Date/Time: Jun 29, 2024 12:44 PM Reporting Lab: [address] [address] Performing Lab: [place] [address] [facility] [address] [facility] COMPREHENS JENNIFER METABOLIC PANEL GLUCOSE [MASS/VOLUM E] IN SERUM OR PLASMA 81 mg/dL 72 - 99 06/29 Specimen Type: PLASMA Comment: LDL calculation invalid when Triglyceride exceeds 250 mg/dl Ordering Provider: JUANITA KIRK MES Report Released Date/Time: Jun 29, 2024 12:44 PM Reporting Lab: [address] [address] Performing Lab: [address] [address] [facility] COMPREHENS JENNIFER METABOLIC PANEL SODIUM [MOLES/VOLU ME] IN SERUM OR PLASMA 140 meq/L 136 - 145 06/29 Specimen Type: PLASMA Comment: LDL calculation invalid when Triglyceride exceeds 250 mg/dl Ordering Provider: JUNAITA KIRK Report Released Date/Time: Jun 29, 2024 12:44 PM Reporting Lab: [address] [address] Performing Lab: [address] [address] [facility] COMPREHENS JENNIFER METABOLIC PANEL POTASSIUM [MOLES/VOLU ME] IN SERUM OR PLASMA 4.6 meq/L 3.5 - 5 06/29 Specimen Type: PLASMA Comment: LDL calculation invalid when Triglyceride exceeds 250 mg/dl Ordering Provider: JUANITA KIRK Report Released Date/Time: Jun 29, 2024 12:44 PM Reporting Lab: [address] [address] Performing Lab: [address] [address] [facility] COMPREHENS JENNIFER METABOLIC PANEL CHLORIDE [MOLES/VOLU ME] IN SERUM OR PLASMA 106 meq/L 98 - 107 06/29 Specimen Type: PLASMA Comment: LDL calculation invalid when Triglyceride exceeds 250 mg/dl Ordering Provider: JUANITA KIRK Report Released Date/Time: Jun 29, 2024 12:44 PM Reporting Lab: [address] [address] Performing Lab: [address] [address] [facility] COMPREHENS JENNIFER METABOLIC PANEL CARBON DIOXIDE, TOTAL [MOLES/VOLU ME] IN SERUM OR PLASMA 21 meq/L 22 - 31 06/29 L Specimen Type: PLASMA Comment: LDL calculation invalid when Triglyceride exceeds 250 mg/dl Ordering Provider: JUANITA KIRK Report Released Date/Time: Jun 29, 2024 12:44 PM Reporting Lab: [address] [address] Performing Lab: [address] [address] [facility] COMPREHENS JENNIFER METABOLIC PANEL CALCIUM [MASS/VOLUM E] IN SERUM OR PLASMA 9.7 mg/dL 8.4 - 10.4 06/29 Specimen Type: PLASMA Comment: LDL calculation invalid when Triglyceride exceeds 250 mg/dl Ordering Provider: JUANITA KIRK Report Released Date/Time: Jun 29, 2024 12:44 PM Reporting Lab: [place] [address] [facility] [address] Performing Lab: [place] [address] [facility] [address] [facility] COMPREHENS JENNIFER METABOLIC PANEL PROTEIN [MASS/VOLUM E] IN SERUM OR PLASMA 7.7 g/dL 6 - 8.6 06/29 Specimen Type: PLASMA Comment: LDL calculation invalid when Triglyceride exceeds 250 mg/dl Ordering Provider: JUANITA KIRK Report Released Date/Time: Jun 29, 2024 12:44 PM Reporting Lab: [place] [address] [facility] [address] Performing Lab: [place] [address] [address] [facility] [address] [facility] COMPREHENS JENNIFER METABOLIC PANEL ALBUMIN [MASS/VOLUM E] IN SERUM OR PLASMA 4.6 g/dL 3.4 - 5 06/29 Specimen Type: PLASMA Comment: LDL calculation invalid when Triglyceride exceeds 250 mg/dl Ordering Provider: JUANITA KIRK Report Released Date/Time: Jun 29, 2024 12:44 PM Reporting Lab: [place] [address] [facility] [address] Performing Lab: [place] [address] [facility] [address] [facility] COMPREHENS JENNIFER METABOLIC PANEL BILIRUBIN.T OTAL [MASS/VOLUM E] IN SERUM OR PLASMA 0.5 mg/dL 0.2 - 1.2 06/29 Specimen Type: PLASMA Comment: LDL calculation invalid when Triglyceride exceeds 250 mg/dl Ordering Provider: JUANITA KIRK Report Released Date/Time: Jun 29, 2024 12:44 PM Reporting Lab: [address] [address] Performing Lab: [place] [address] [facility] [address] [facility] COMPREHENS JENNIFER METABOLIC PANEL ALKALINE PHOSPHATASE [ENZYMATIC ACTIVITY/VO LUME] IN SERUM OR PLASMA 76 U/L 40 - 150 06/29 Specimen Type: PLASMA Comment: LDL calculation invalid when Triglyceride exceeds 250 mg/dl Ordering Provider: JUANITA KIRK Report Released Date/Time: Jun 29, 2024 12:44 PM Reporting Lab: [address] [address] Performing Lab: [address] [address] [facility] COMPREHENS JENNIFER METABOLIC PANEL ASPARTATE AMINOTRANSF ERASE [ENZYMATIC ACTIVITY/VO LUME] IN SERUM OR PLASMA 25 U/L 5 - 34 06/29 Specimen Type: PLASMA Comment: LDL calculation invalid when Triglyceride exceeds 250 mg/dl Ordering Provider: JUANITA KIRK Report Released Date/Time: Jun 29, 2024 12:44 PM Reporting Lab: [address] [address] Performing Lab: [address] [address] [facility] COMPREHENS JENNIFER METABOLIC PANEL ALANINE AMINOTRANSF ERASE [ENZYMATIC ACTIVITY/VO LUME] IN SERUM OR PLASMA 23 U/L 8 - 40 06/29 Specimen Type: PLASMA Comment: LDL calculation invalid when Triglyceride exceeds 250 mg/dl Ordering Provider: JUANITA KIRK MES Report Released Date/Time: Jun 29, 2024 12:44 PM Reporting Lab: [address] [address] Performing Lab: [address] [address] [facility] COMPREHENS JENNIFER METABOLIC PANEL GLOMERULAR FILTRATION RATE/1.73 SQ M.PREDICTED [VOLUME RATE/AREA] IN SERUM, PLASMA OR BLOOD BY CREATININE- BASED FORMULA (CKD-EPI 2020) 98.4 60 06/29 Specimen Type: PLASMA Comment: LDL calculation invalid when Triglyceride exceeds 250 mg/dl Ordering Provider: JUANITA KIRK Report Released Date/Time: Jun 29, 2024 12:44 PM Reporting Lab: [address] [address] Performing Lab: [phone] [facility] [facility] [facility] HGA1C HEMOGLOBIN A1C/HEMOGLO BIN.TOTAL IN BLOOD 5.5 4.0 - 6.0 06/29 Specimen Type: BLOOD No comment entered. Ordering Provider: JUANITA KIRK Report Released Date/Time: Jun 29, 2024 12:44 PM Reporting Lab: [address] [address] Performing Lab: [address] [phone] [facility] CBC LEUKOCYTES [#/VOLUME] IN BLOOD BY AUTOMATED COUNT 5.4 10*3/u L 3.6 - 11.2 06/29 Specimen Type: BLOOD No comment entered. Ordering Provider: JUANITA KIRK Report Released Date/Time: Jun 29, 2024 12:44 PM Reporting Lab: [address] [address] Performing Lab: [address] [phone] [place] [address] [facility] CBC ERYTHROCYTE S [#/VOLUME] IN BLOOD BY AUTOMATED COUNT 5.26 10*6/u L 4.10 - 5.70 06/29 Specimen Type: BLOOD No comment entered. Ordering Provider: JUANITA KIRK Report Released Date/Time: Jun 29, 2024 12:44 PM Reporting Lab: [address] [address] Performing Lab: [address] [phone] [place] [address] [facility] CBC HEMOGLOBIN [MASS/VOLUM E] IN BLOOD 16.7 g/dL 13.1 - 16.8 06/29 Specimen Type: BLOOD No comment entered. Ordering Provider: JUANITA KIRK Report Released Date/Time: Jun 29, 2024 12:44 PM Reporting Lab: [place] [phone] Performing Lab: [place] [phone] [facility] CBC HEMATOCRIT [VOLUME FRACTION] OF BLOOD 47.9 38.2 - 48.4 06/29 Specimen Type: BLOOD No comment entered. Ordering Provider: JUANITA KIRK Report Released Date/Time: Jun 29, 2024 12:44 PM Reporting Lab: [place] [address] Performing Lab: [address] [facility] CBC MCV [ENTITIC VOLUME] BY AUTOMATED COUNT 91.1 fL 80.0 - 100.0 06/29 Specimen Type: BLOOD No comment entered. Ordering Provider: JUANITA KIRK Report Released Date/Time: Jun 29, 2024 12:44 PM Reporting Lab: [place] [address] Performing Lab: [address] [phone] [facility] CBC MCH [ENTITIC MASS] BY AUTOMATED COUNT 31.7 pg 27.0 - 34.0 06/29 Specimen Type: BLOOD No comment entered. Ordering Provider: JUANITA KIRK Report Released Date/Time: Jun 29, 2024 12:44 PM Reporting Lab: [place] [address] Performing Lab: [address] [facility] CBC MCHC [MASS/VOLUM E] BY AUTOMATED COUNT 34.9 g/dL 33.0 - 36.0 06/29 Specimen Type: BLOOD No comment entered. Ordering Provider: JUANITA KIRK Report Released Date/Time: Jun 29, 2024 12:44 PM Reporting Lab: [place] [address] Performing Lab: [address] [phone] [place] [address] [facility] CBC PLATELETS [#/VOLUME] IN BLOOD BY AUTOMATED COUNT 257 10*3/u L 150 - 400 06/29 Specimen Type: BLOOD No comment entered. Ordering Provider: JUANITA KIRK Report Released Date/Time: Jun 29, 2024 12:44 PM Reporting Lab: [place] [address] Performing Lab: [address] [facility] CBC PLATELET MEAN VOLUME [ENTITIC VOLUME] IN BLOOD BY AUTOMATED COUNT 10.1 fL 7.5 - 11.2 06/29 Specimen Type: BLOOD No comment entered. Ordering Provider: JUANITA KIRK Report Released Date/Time: Jun 29, 2024 12:44 PM Reporting Lab: [place] [address] Performing Lab: [place] [phone] [facility] CBC ERYTHROCYTE DISTRIBUTIO N WIDTH [RATIO] BY AUTOMATED COUNT 12.7 11.8 - 15.1 06/29 Specimen Type: BLOOD No comment entered. Ordering Provider: JUANITA KIRK Report Released Date/Time: Jun 29, 2024 12:44 PM Reporting Lab: [facility] [address] [place] [address] Performing Lab: [place] [phone] [facility] CBC LYMPHOCYTES /100 LEUKOCYTES IN BLOOD BY AUTOMATED COUNT 29 06/29 Specimen Type: BLOOD No comment entered. Ordering Provider: JUANITA KIRK Report Released Date/Time: Jun 29, 2024 12:44 PM Reporting Lab: [facility] [address] [facility] [address] Performing Lab: [facility] [address] [facility] [address] [facility] CBC MONOCYTES/1 00 LEUKOCYTES IN BLOOD BY AUTOMATED COUNT 7 06/29 Specimen Type: BLOOD No comment entered. Ordering Provider: JUANITA KIRK Report Released Date/Time: Jun 29, 2024 12:44 PM Reporting Lab: [facility] [address] [facility] [address] Performing Lab: [facility] [address] [facility] [address] [facility] CBC NEUTROPHILS /100 LEUKOCYTES IN BLOOD BY AUTOMATED COUNT 59 06/29 Specimen Type: BLOOD No comment entered. Ordering Provider: JUANITA KIRK Report Released Date/Time: Jun 29, 2024 12:44 PM Reporting Lab: [facility] [address] [facility] [address] Performing Lab: [facility] [address] [facility] [address] [facility] CBC EOSINOPHILS /100 LEUKOCYTES IN BLOOD BY AUTOMATED COUNT 4 06/29 Specimen Type: BLOOD No comment entered. Ordering Provider: JUANITA KIRK Report Released Date/Time: Jun 29, 2024 12:44 PM Reporting Lab: [facility] [address] [facility] [address] Performing Lab: [facility] [address] [facility] [address] [facility] CBC BASOPHILS/1 00 LEUKOCYTES IN BLOOD BY AUTOMATED COUNT 1 06/29 Specimen Type: BLOOD No comment entered. Ordering Provider: JUANITA KIRK Report Released Date/Time: Jun 29, 2024 12:44 PM Reporting Lab: [facility] [address] [facility] [address] Performing Lab: [facility] [address] [facility] [address] [facility] CBC LYMPHOCYTES [#/VOLUME] IN BLOOD BY AUTOMATED COUNT 1.56 10*3/u L 0.77 - 4.50 06/29 Specimen Type: BLOOD No comment entered. Ordering Provider: JUANITA KIRK Report Released Date/Time: Jun 29, 2024 12:44 PM Reporting Lab: [address] [address] Performing Lab: [address] [phone] [facility] [facility] [facility] CBC MONOCYTES [#/VOLUME] IN BLOOD BY AUTOMATED COUNT 0.40 10*3/u L 0.19 - 0.80 06/29 Specimen Type: BLOOD No comment entered. Ordering Provider: JUANITA KIRK Report Released Date/Time: Jun 29, 2024 12:44 PM Reporting Lab: [place] [address] Performing Lab: [address] [phone] [facility] [facility] [facility] CBC NEUTROPHILS [#/VOLUME] IN BLOOD BY AUTOMATED COUNT 3.19 10*3/u L 2.10 - 8.00 06/29 Specimen Type: BLOOD No comment entered. Ordering Provider: JUANITA KIRK Report Released Date/Time: Jun 29, 2024 12:44 PM Reporting Lab: [address] [address] Performing Lab: [address] [address] [facility] CBC EOSINOPHILS [#/VOLUME] IN BLOOD BY AUTOMATED COUNT 0.24 10*3/u L 0.00 - 0.60 06/29 Specimen Type: BLOOD No comment entered. Ordering Provider: JUANITA KIRK Report Released Date/Time: Jun 29, 2024 12:44 PM Reporting Lab: [address] [address] Performing Lab: [address] [address] [facility] CBC BASOPHILS [#/VOLUME] IN BLOOD BY AUTOMATED COUNT 0.03 10*3/u L 0.00 - 0.20 06/29 Specimen Type: BLOOD No comment entered. Ordering Provider: JUANITA KIRK Report Released Date/Time: Jun 29, 2024 12:44 PM Reporting Lab: [place] [address] [facility] [address] Performing Lab: [address] [facility] PROST. SPECIFIC AG.(PB-STL ) PROSTATE SPECIFIC AG [MASS/VOLUM E] IN SERUM OR PLASMA 0.952 ng/mL 0 - 4 06/29 Specimen Type: SERUM Comment: The listed sex of this patient may not be a typical indication for this test. Therefore, reference ranges or interpretive criteria listed may not be valid. Clinical correlation suggested. Ordering Provider: JUANITA KIRK Report Released Date/Time: Jun 29, 2024 12:44 PM Reporting Lab: [place] [address] Performing Lab: [address] [facility] TSH W/ REFLEX FT4 (STL) THYROTROPIN [UNITS/VOLU ME] IN SERUM OR PLASMA 0.833 u[IU]/ mL 0.47 - 5 06/29 Specimen Type: PLASMA No comment entered. Ordering Provider: JUANITA KIRK Report Released Date/Time: Jun 29, 2024 12:44 PM Reporting Lab: [address] [address] Performing Lab: [address] [facility] URINALYSIS (STL-PB) COLOR OF URINE Light- Yellow 06/29 Specimen Type: URINE No comment entered. Ordering Provider: JUANITA KIRK Report Released Date/Time: Jun 29, 2024 12:44 PM Reporting Lab: [place] [address] [place] [address] Performing Lab: [facility] [address] [facility] [address] [facility] URINALYSIS (STL-PB) BILIRUBIN.T OTAL [PRESENCE] IN URINE BY TEST STRIP Negati vemg/d L 06/29 Specimen Type: URINE No comment entered. Ordering Provider: JUANITA KIRK Report Released Date/Time: Jun 29, 2024 12:44 PM Reporting Lab: [place] [address] [facility] [address] Performing Lab: [place] [address] [facility] [address] [facility] URINALYSIS (STL-PB) PH OF URINE BY TEST STRIP 5.5 5.0 - 8.0 06/29 Specimen Type: URINE No comment entered. Ordering Provider: JUANITA KIRK Report Released Date/Time: Jun 29, 2024 12:44 PM Reporting Lab: [place] [address] [facility] [address] Performing Lab: [place] [address] [facility] [address] [facility] URINALYSIS (STL-PB) APPEARANCE OF URINE Clear 06/29 Specimen Type: URINE No comment entered. Ordering Provider: JUANITA KIRK Report Released Date/Time: Jun 29, 2024 12:44 PM Reporting Lab: [place] [address] [facility] [address] Performing Lab: [place] [address] [facility] [address] [facility] URINALYSIS (STL-PB) NITRITE [PRESENCE] IN URINE BY TEST STRIP Negati vemg/d L 06/29 Specimen Type: URINE No comment entered. Ordering Provider: JUANITA KIRK Report Released Date/Time: Jun 29, 2024 12:44 PM Reporting Lab: [address] [address] Performing Lab: [address] [address] [facility] URINALYSIS (STL-PB) GLUCOSE [MASS/VOLUM E] IN URINE BY TEST STRIP Normal mg/dL 06/29 Specimen Type: URINE No comment entered. Ordering Provider: JUANITA KIRK Report Released Date/Time: Jun 29, 2024 12:44 PM Reporting Lab: [place] [phone] Performing Lab: [place] [phone] [facility] URINALYSIS (STL-PB) PROTEIN [MASS/VOLUM E] IN URINE BY TEST STRIP Negati vemg/d L - 20 06/29 Specimen Type: URINE No comment entered. Ordering Provider: JUANITA KIRK Report Released Date/Time: Jun 29, 2024 12:44 PM Reporting Lab: [place] [phone] Performing Lab: [place] [phone] [facility] URINALYSIS (STL-PB) URN.UROBILI NOGEN Normal mg/dL 06/29 Specimen Type: URINE No comment entered. Ordering Provider: JUANITA KIRK Report Released Date/Time: Jun 29, 2024 12:44 PM Reporting Lab: [place] [phone] Performing Lab: [address] [phone] [place] [address] [facility] URINALYSIS (STL-PB) HEMOGLOBIN [MASS/VOLUM E] IN URINE BY TEST STRIP Negati vemg/d L 06/29 Specimen Type: URINE No comment entered. Ordering Provider: JUANITA KIKR Report Released Date/Time: Jun 29, 2024 12:44 PM Reporting Lab: [place] [phone] Performing Lab: [facility] [address] [address] [facility] URINALYSIS (STL-PB) KETONES [MASS/VOLUM E] IN URINE BY TEST STRIP 10 mg/dL 06/29 H Specimen Type: URINE No comment entered. Ordering Provider: JUANITA KIRK Report Released Date/Time: Jun 29, 2024 12:44 PM Reporting Lab: [place] [address] Performing Lab: [address] [facility] URINALYSIS (STL-PB) URN.LEUK.ES T. Negati vemg/d L 06/29 Specimen Type: URINE No comment entered. Ordering Provider: JUANITA KIRK Report Released Date/Time: Jun 29, 2024 12:44 PM Reporting Lab: [place] [address] Performing Lab: [place] [phone] [facility] URINALYSIS (STL-PB) SPECIFIC GRAVITY OF URINE 1.018 1.005 - 1.029 06/29 Specimen Type: URINE No comment entered. Ordering Provider: JUANITA KIRK Report Released Date/Time: Jun 29, 2024 12:44 PM Reporting Lab: [place] [address] Performing Lab: [address] [facility] VITAMIN D, 25-HYDROXY 25-HYDROXYV ITAMIN D3 [MASS/VOLUM E] IN SERUM OR PLASMA 54.1 ng/mL 30 - 96 06/29 Specimen Type: SERUM Comment: The listed sex of this patient may not be a typical indication for this test. Therefore, reference ranges or interpretive criteria listed may not be valid. Clinical correlation suggested. Ordering Provider: JUANITA KIRK Report Released Date/Time: Jun 29, 2024 12:44 PM Reporting Lab: [place] [id number] [facility] [address] Performing Lab: [facility] [address] [facility] [address] [facility] Vital Signs Combined list of inpatient and outpatient Vital Signs from Department of [facility] and [facility], ranging from 12 months to all on record, depending upon the facility. Vital Sign Value Date Comments Source SYSTOLIC BLOOD PRESSURE 128 06/29/2024 12:28:19 [facility] DIASTOLIC BLOOD PRESSURE 82 06/29/2024 12:28:19 [facility] PULSE OXIMETRY 97 06/29/2024 12:28:19 [facility] WEIGHT 190 06/29/2024 12:28:19 [facility] BMI 28 kg/m2 06/29/2024 12:28:19 [facility] PAIN 0 06/29/2024 12:28:19 [facility] TEMPERATURE 98 06/29/2024 12:28:19 [facility] PULSE 62 06/29/2024 12:28:19 [facility] RESPIRATION 20 06/29/2024 12:28:19 . [facility] Encounters Combined list of: 1) Encounters from [facility] facilities going backup to the last 18 months, not all [place] inpatient encounters are included; 2) Encounters from the Department of [facility] facilities going backup to 280 months. 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 ADI Pope 05/13 Released w/o Limitations [facility] [place] [facility] [address] [place] [address] [place] [facility] [facility] [place] [facility] [place] [place] OUTPATIENT [id number] mole on leg/all ergies MANJEET SCHERER 02/03 Released w/o Limitations [facility] [place] [facility] [facility] [facility] [place] [place] [address] [place] [address] [place] [facility] Neuromusc uloskelet al Clinic) OUTPATIENT [id number] PADMINI FUCHS 02/10 Released w/o Limitations [facility] [place]P t Neuromu sculosk eletal Clinic) [facility] [place]Fam kayleen Practice Non-GME FHI2) OUTPATIENT [id number] rht elbow pain x 2weeks JOSE HAWKINS 03/30 Released w/o Limitations [facility] [place]F amily Practic e Non-GME FHI2) [facility] [place] [facility] [facility] [place] Res [place]) OUTPATIENT [id number] Rt elbow problem (new) MACY JIMENEZ 04/06 Released w/o Limitations [facility] [place] ([facility]S cott [facility] [place] [address] [place] [address] [place] [facility]All ergy Resource Sharing) OUTPATIENT [id number] ALLERGIGLESIA SÁNCHEZ 04/20 Released w/o Limitations [facility] [place]A llergy Resourc e Sharing ) [address] [place] [address] [place] [facility]Pt Neuromusc uloskelet al Clinic) OUTPATIENT [id number] knee pain/di scomfor t PADMINI FUCHS 04/27 Released w/o Limitations [facility] [place] ([facility]P t Neuromu sculosk eletal Clinic) [address] [place] [address] [place] [facility] [facility]Phy sical Therapy) OUTPATIENT [id number] Pas entered the order JACOB FELICIANO JR 04/30 Released w/o Limitations [facility] [employer] ([facility]P hysical Therapy ) [address] [place] [address] [employer] ([facility])(Phy sical Therapy) OUTPATIENT [id number] AMBER MUSE 05/04 Released w/o Limitations [facility] [employer] ([facility])(P hysical Therapy ) [address] [place] [address] [employer] ([facility])(Phy sical Therapy) OUTPATIENT [id number] AMBER MUSE 05/06 Released w/o Limitations [facility] [employer] [facility]P hysical Therapy ) [address] [place] [address] [employer] [facility]Phy sical Therapy[facility] OUTPATIENT [id number] AMBER MUSETanvir 05/11 Released w/o Limitations [employer] ([facility])(P hysical Therapy ) [facility] [employer] ([facility])(Sco tt [facility] FAMRES Tm Blue) OUTPATIENT [id number] PHA JHON PARSON 05/18 Released w/o Limitations [employer] ([facility])(S cott [facility] FAM[facility] Tm Blue) [facility] [employer] ([facility])(All ergy) OUTPATIENT [id number] 2 allergy shots DARYN VALDEZ 05/19 Released w/o Limitations [employer] ([facility])(A llergy) [facility] [employer] ([facility])(All ergy) OUTPATIENT [id number] 2 allergy shots DARYN VALDEZ 05/26 Released w/o Limitations [employer] ([facility])(A llergy) [facility] [employer] ([facility])(Fam kayleen Practice Procedure s) OUTPATIENT [id number] EPIDERM AL INCLUSI ON CYST JHON ARIAS 05/28 Released w/o Limitations [facility] [employer] ([facility])(F amily Practic e Procedu res) [facility] [employer] ([facility])(All ergy) OUTPATIENT [id number] 2 allergy shots DARYN VALDEZ 05/28 Released w/o Limitations [facility] [employer] ([facility])(A llergy) [facility] [employer] ([facility])(Sco tt [facility] Fam Res Tm Green) TELE CONSULT [id number] ARI FRAGOSO 06/03 [employer] ([facility])(S [facility] Fam Res Tm Green) [facility] [employer] ([facility])(Sco tt [facility] Fam Res Tm Green) OUTPATIENT [id number] retirem ent JOSE Dasilva 06/08 Released w/o Limitations [employer] ([facility])(S [facility] Fam Res Tm Green) [facility] [employer] ([facility])(All ergy) OUTPATIENT [id number] 2 allergy shots GISSELLE IBARRA 06/14 Released w/o Limitations th [employer] ([facility])(A llergy) [employer] ([facility])(All ergy) OUTPATIENT [id number] 2 allergy shots GISSELLE IBARRA A 06/18 Released w/o Limitations [employer] ([facility])(A llergy) [employer] ([facility])(All ergy) OUTPATIENT [id number] 2 allergy shots GISSELLE IBARRA A 06/23 Released w/o Limitations [employer] ([facility])(A llergy) [employer] ([facility])(All ergy) OUTPATIENT [id number] 2 allergy shot GISSELLE IBARRA A 06/25 Released w/o Limitations [employer] ([facility])(A llergy) [employer] ([facility])(All ergy) OUTPATIENT [id number] 2 allergy shots GISSELLE IBARRA A 06/28 Released w/o Limitations [employer] ([facility])(A llergy) [facility] [employer] ([facility])(All ergy) OUTPATIENT [id number] 2 allergy shots VALDEZDARYN Linette 07/14 Released w/o Limitations [facility] [employer] ([facility])(A llergy) [address] [place] [address] [employer] ([facility])(VA - Orthopedi cs) OUTPATIENT [id number] osiel waldeni on k HANSELDUDLEY 07/15 Released w/o Limitations [employer] ([facility])(V A - Orthope dics) [employer] ([facility])(Pt Neuromusc uloskelet al Clinic) OUTPATIENT [id number] PADMINI FUCHS 07/27 Released w/o Limitations [employer] ([facility])(P t Neuromu sculosk eletal Clinic) [employer] ([facility])(Phy sical Therapy) OUTPATIENT [id number] AMARIS YANG 07/29 Released w/o Limitations [employer] ([facility])(P hysical Therapy ) [facility] [employer] ([facility])(Phy sical Therapy) OUTPATIENT [id number] JACOB FELICIANO JR 08/03 Released w/o Limitations [employer] ([facility])(P hysical Therapy ) [employer] ([facility])(Phy sical Therapy) OUTPATIENT [id number] AMBER MUSE 08/05 Released w/o Limitations [employer] ([facility])(P hysical Therapy ) [employer] ([facility])(Phy sical Therapy) OUTPATIENT [id number] AMARIS YANG 08/09 Released w/o Limitations [employer] ([facility])(P hysical Therapy ) [facility] [employer] ([facility])(Phy sical Therapy) OUTPATIENT [id number] AMBER MUSE 08/17 Released w/o Limitations th [employer] ([facility])(P hysical Therapy ) [employer] ([facility])(Occ upational Therapy) OUTPATIENT [id number] ROOSEVELT SHAY 08/18 Released w/o Limitations [employer] ([facility])(O ccupati onal Therapy ) [facility] [employer] ([facility])(Sco tt [facility] Fam Res Tm Green) TELE CONSULT [id number] JOSE Cope 08/30 [facility] [employer] ([facility])(S shanti [facility] Fam Res Tm Green) [facility] Outpatient Encounter [id number] LIZ PEPPER E 01/09 [facility] Outpatient Encounter [id number] 01/11 [facility] [id number] Diagnos is: ICD-10- CM Z12.11 Encount er for screeni ng for maligna nt neoplas m of colon CAROLEE SUAZO 01/15 [facility] Encounter [id number] 02/06 [facility] MOD SED SAME PHYS/[place] [id number] Diagnos is: ICD-10- CM K63.5 Polyp of colon VIRGINIA GAINES 02/07 [facility] Outpatient Encounter [id number] 02/07 [facility] Outpatient Encounter [id number] MAGALI KOLB S 02/09 [facility] Outpatient Encounter [id number] 02/12 [facility] Outpatient Encounter [id number] LIZ PEPPER 06/21 [facility] OFFICE O/P EST MOD 30 MIN [id number] Diagnos is: ICD-10- CM M25.561 Pain in right knee JOSE KIRK 06/29 [facility] Outpatient Encounter [id number] 07/03 [facility] Outpatient Encounter [id number] 07/18 [facility] Outpatient Encounter [id number] 07/19 [facility] Outpatient Encounter [id number] 12/10 [facility] Outpatient Encounter [id number] LIZ PEPPER MILADY E 12/11 [facility] EDU&TRN PT SELF-MGMT NQHP 1 [id number] Diagnos is: ICD-10- CM R54 Age-rel ated physica l debilit y MILD,OTTONIEL S L 12/11 [facility] WELLNESS ASSESSMENT BY NONPH [id number] Diagnos is: ICD-10- CM Z02.5 Encount er for examina tion for partici pation in sport Nicky MENDENHALL OHN P 12/[address] [facility] Outpatient Encounter [id number] 12/19 [facility] Outpatient Encounter [id number] 12/21 [facility] GROUP THERAPEUTI C PROCEDURES [id number] Diagnos is: ICD-10- CM Z02.5 Encount er for examina tion for partici pation in sport Nicky MENDENHALL OHN P 01/10 [facility] HE[facility] ASSESS BY SELVIN- [id number] Diagnos is: ICD-10- CM Z02.5 Encount er for examina tion for partici pation in sport Nicky MENDENHALL OHN P 02/05 [facility] EDU&TRN PT SLF-MGMT NQHP 5-8 [id number] Diagnos is: ICD-10- CM Z02.5 Encount er for examina tion for partici pation in sport ABDIRASHID,J OHN P 02/12 [facility] GROUP THERAPEUTI C PROCEDURES [id number] Diagnos is: ICD-10- CM Z02.5 Encount er for examina tion for partici pation in [employer] [facility],J OHN P 02/14 [facility] EDU&TRN PT SLF-MGMT NQHP 2-4 [id number] Diagnos is: ICD-10- CM Z02.5 Encount er for examina tion for partici pation in [employer] [facility],Nicky OHN P 02/19 [facility] GROUP THERAPEUTI C PROCEDURES [id number] Diagnos is: ICD-10- CM Z02.5 Encount er for examina tion for partici pation in [employer] [facility]J [facility] P 02/21 [facility] OFFICE O/P NEW LOW 30 MIN [id number] Diagnos is: ICD-10- CM H04.123 Dry eye syndrom e of bilater al lacrima l glands CHIVETTReguloM SCOTT KATHLEEN 02/22 [facility] EDU&TRN PT SLF-MGMT NQHP 5-8 [id number] Diagnos is: ICD-10- CM Z02.5 Encount er for examina tion for partici pation in [employer] [facility] 02[facility]26 [facility] EDU&TRN PT SLF-MGMT NQHP 5-8 [id number] Diagnos is: ICD-10- CM Z02.5 Encount er for examina tion for partici pation in sport Nicky MENDENHALL OHN P 02/28 [facility] EDU&TRN PT SLF-MGMT NQHP 5-8 [id number] Diagnos is: ICD-10- CM Z02.5 Encount er for examina tion for partici pation in sport Nicky MENDENHALL OHN P 03/19 [facility] EDU&TRN PT SLF-MGMT NQHP 5-8 [id number] Diagnos is: ICD-10- CM Z02.5 Encount er for examina tion for partici pation in sport Nicky MENDENHALL OHN P 04/23 [facility] Procedures Combined list of: 1) Procedures from Department of Veterans Affairs facilities going back up to thelast 18 months, not all [place] non-surgical procedures are included; 2) All procedures from the Department of Defense facilities. Procedure Procedure Type Code Date Perfomer Comments Sourc e No data available for this section [facility] Pharmacy SELF-CARE/HOME MANAGMENT TRAIN (EG,ACT OF DAILY LIVING (ADL) &COMPENSAT TRAIN,MEAL PREPARATION,SAFETY PROCS,AND INSTRUCT IN USE OF ASST TECHNOLOGY DEV/ADPT EQUIP) DIR ONE-ON-ONE CONT,EA 15 MINUTES 2004 DoD APPLICATION OF A MODALITY TO 1 OR MORE AREAS; ULTRASOUND, EACH 15 MINUTES 2004 DoD APPLICATION OF A MODALITY TO 1 OR MORE AREAS; ULTRASOUND, EACH 15 MINUTES 2004 DoD APPLICATION OF A MODALITY TO 1 OR MORE AREAS; ULTRASOUND, EACH 15 MINUTES 2004 DoD APPLICATION OF A MODALITY TO 1 OR MORE AREAS; ULTRASOUND, EACH 15 MINUTES 2004 DoD SELF-CARE/HOME MANAGMENT TRAIN (EG,ACT OF DAILY LIVING (ADL) &COMPENSAT TRAIN,MEAL PREPARATION,SAFETY PROCS,AND INSTRUCT IN USE OF ASST TECHNOLOGY DEV/ADPT EQUIP) DIR ONE-ON-ONE CONT,EA 15 MINUTES 2004 DoD APPLICATION OF A MODALITY TO 1 OR MORE AREAS; ULTRASOUND, EACH 15 MINUTES 2004 DoD PROFESSIONAL SERVICES FOR ALLERGEN IMMUNOTHERAPY NOT INCLUDING PROVISION OF ALLERGENIC EXTRACTS; 2 OR MORE INJECTIONS 2004 DoD PROFESSIONAL SERVICES FOR ALLERGEN IMMUNOTHERAPY NOT INCLUDING PROVISION OF ALLERGENIC EXTRACTS; 2 OR MORE INJECTIONS 2004 DoD PROFESSIONAL SERVICES FOR ALLERGEN IMMUNOTHERAPY NOT INCLUDING PROVISION OF ALLERGENIC EXTRACTS; 2 OR MORE INJECTIONS 2004 DoD PROFESSIONAL SERVICES FOR ALLERGEN IMMUNOTHERAPY NOT INCLUDING PROVISION OF ALLERGENIC EXTRACTS; 2 OR MORE INJECTIONS 2004 DoD PROFESSIONAL SERVICES FOR ALLERGEN IMMUNOTHERAPY NOT INCLUDING PROVISION OF ALLERGENIC EXTRACTS; 2 OR MORE INJECTIONS 2004 DoD PROFESSIONAL SERVICES FOR ALLERGEN IMMUNOTHERAPY NOT INCLUDING PROVISION OF ALLERGENIC EXTRACTS; 2 OR MORE INJECTIONS 2004 DoD PROFESSIONAL SERVICES FOR ALLERGEN IMMUNOTHERAPY NOT INCLUDING PROVISION OF ALLERGENIC EXTRACTS; 2 OR MORE INJECTIONS 2004 DoD SHAVING OF EPIDERMAL OR DERMAL LESION, SINGLE LESION, TRUNK, ARMS OR LEGS; LESION DIAMETER 0.6 TO 1.0 CM 2004 DoD PROFESSIONAL SERVICES FOR ALLERGEN IMMUNOTHERAPY NOT INCLUDING PROVISION OF ALLERGENIC EXTRACTS; 2 OR MORE INJECTIONS 2004 DoD PROFESSIONAL SERVICES FOR ALLERGEN IMMUNOTHERAPY NOT INCLUDING PROVISION OF ALLERGENIC EXTRACTS; 2 OR MORE INJECTIONS 2004 [facility] APPLICATION OF A MODALITY TO 1 OR MORE AREAS; IONTOPHORESIS, EACH 15 MINUTES 2004 DoD APPLICATION OF A MODALITY TO 1 OR MORE AREAS; IONTOPHORESIS, EACH 15 MINUTES 2004 DoD APPLICATION OF A MODALITY TO 1 OR MORE AREAS; IONTOPHORESIS, EACH 15 MINUTES 2004 DoD APPLICATION OF A MODALITY TO 1 OR MORE AREAS; IONTOPHORESIS, EACH 15 MINUTES 2004 DoD APPLICATION OF A MODALITY TO 1 OR MORE AREAS; HOT OR COLD PACKS 2004 DoD PROFESSIONAL SERVICES FOR THE SUPERVISION OF PREPARATION AND PROVISION OF ANTIGENS FOR ALLERGEN IMMUNOTHERAPY; SINGLE OR MULTIPLE ANTIGENS (SPECIFY NUMBER OF DOSES) 2004 [facility] PHYSICAL THERAPY EVALUATION 2004 [facility] PSYCHIATRIC EVALUATION OF HOSPITAL RECORDS, OTHER PSYCHIATRIC REPORTS, PSYCHOMETRIC AND/OR PROJECTIVE TESTS, AND OTHER ACCUMULATED DATA FOR MEDICALDIAGNOSTIC PURPOSES 2003 [facility] Occupational Therapy Evaluation Occupational Therapy Evaluation 09693 2004 ROOSEVELT SHAY [facility] Training And Self-Care Skills Training And Self-Care Skills 61359 2004 ROOSEVELT SHAY [facility] Modalities Ultrasound Modalities Ultrasound 56394 2004 AMBER MUSE [facility] Modalities Ultrasound Modalities Ultrasound 32271 2004 AMARIS YANG [facility] Modalities Ultrasound Modalities Ultrasound 91842 2004 AMBER MUSE [facility] Modalities Ultrasound Modalities Ultrasound 61754 2004 JACOB FELICIANO JR [facility] Modalities Ultrasound Modalities Ultrasound 24107 2004 AMARIS YANG [facility] Training And Self-Care Skills Training And Self-Care Skills 95270 2004 AMARIS YANG [facility] Physical Medicine Physical Therapy Evaluation Physical Medicine Physical Therapy Evaluation 52428 2004 PADMINI FUCHS [facility] Modalities Ultrasound Modalities Ultrasound 81700 2004 PADMINI FUCHS [facility] Desensitization Supervision - Multiple Extract Injections Desensitization Supervision - Multiple Extract Injections 20313 2004 RENUKA KUHN [facility] Desensitization Supervision - Multiple Extract Injections Desensitization Supervision - Multiple Extract Injections 05706 2004 RENUKA KUHN [facility] Desensitization Supervision - Multiple Extract Injections Desensitization Supervision - Multiple Extract Injections 11620 2004 RENUKA KUHN [facility] Desensitization Supervision - Multiple Extract Injections Desensitization Supervision - Multiple Extract Injections 73437 2004 RENUKA KUHN [facility] Desensitization Supervision - Multiple Extract Injections Desensitization Supervision - Multiple Extract Injections 10814 2004 RENUKA KUHN [facility] Desensitization Supervision - Multiple Extract Injections Desensitization Supervision - Multiple Extract Injections 51408 2004 RENUKA KUHN [facility] Shaving Of Lesion Legs .6 to 1cm Shaving Of Lesion Legs .6 to 1cm 78256 2004 JHON ARIAS [facility] Desensitization Supervision - Multiple Extract Injections Desensitization Supervision - Multiple Extract Injections 07810 2004 LILY SALAZAR [facility] Desensitization Supervision - Multiple Extract Injections Desensitization Supervision - Multiple Extract Injections 00289 2004 LILY SALAZAR [facility] Desensitization Supervision - Multiple Extract Injections Desensitization Supervision - Multiple Extract Injections 99238 2004 RENUKA KUHN [facility] Modalities Ultrasound Modalities Ultrasound 27590 2004 [employer] Cryotherapy [place] Modalities Cryotherapy [place] 61931 2004 [employer] Modalities Iontophoresis Modalities Iontophoresis 20161 2004 [employer] Modalities Iontophoresis Modalities Iontophoresis 99917 2004 [employer] Modalities Ultrasound Modalities Ultrasound 27713 2004 [employer] Modalities Cryotherapy [place] Modalities Cryotherapy [place] 38498 2004 [employer] Modalities Cryotherapy [place] Modalities Cryotherapy [place] 07001 2004 [employer] Modalities Iontophoresis Modalities Iontophoresis 03682 2004 [employer] Modalities Ultrasound Modalities Ultrasound 73544 2004 [employer] Modalities Ultrasound Modalities Ultrasound 95770 2004 JACOB FELICIANO JR [facility] Modalities Cryotherapy [place] Modalities Cryotherapy [place] 45275 2004 JACOB FELICIANO JR [facility] Modalities Iontophoresis Modalities Iontophoresis 53594 2004 JACOB FELICIANO JR [facility] Training And Self-Care Skills Training And Self-Care Skills 14456 2004 PADMINI FUCHS Modalities Cryotherapy [place] Modalities Cryotherapy [place] 14986 2004 PADMINI FUCHS Physical Medicine Physical Therapy Evaluation Physical Medicine Physical Therapy Evaluation 08481 2004 PADMINI FUCHS [facility] Modalities Ultrasound Modalities Ultrasound 26679 2004 PADMINI FUCHS Modalities Iontophoresis Modalities Iontophoresis 17540 2004 PADMINI FUCHS Physical Therapy: ___ Se ion Segments, 15 Minutes Each Physical Therapy: ___ Session Segments, 15 Minutes Each 86258 2004 PADMINI FUCHS supinator stretches, CET stretches x 10 minutes. LE stretches and strengthening x 10 minutes [facility] Allergy Percutaneous tests - allergenic extracts 2004 IGLESIA JUAREZ [facility] Desensitization Supervision, 1+ Antigens, 2+ Mult Dose Vials Desensitization Supervision, 1+ Antigens, 2+ Mult Dose Vials 36314 2004 IGLESIA JUAREZ [facility] Physical Medicine Physical Therapy Evaluation Physical Medicine Physical Therapy Evaluation 36674 2004 PADMINI FUCHS [facility] -Supervised Group Educational Services 2003 ADI BRYANT [facility] Psychiatric Evaluation Review of Records and Reports Psychiatric Evaluation Review of Records and Reports 25424 2003 ADI BRYANT [facility] Social History Combined list of available smoking, tobacco, and other social history from Department of Defense and Veterans Affairs facilities. Social History Type Response Date Comment Sourc e Tobacco smoking status NHIS VA-TOBACCO USER SOME DAYS 06/29/2024 [facility] History of tobacco use VA-TOBACCO USE < 1 YEAR 06/29/2024 [facility] History of tobacco use VA-TOBACCO FORMER USER 01/13/2023 [facility] History of tobacco use VA-TOBACCO FORMER USER 01/06/2022 [facility] History of tobacco use VA-TOBACCO QUIT 1 TO < 5 YRS 12/16/2020 [facility] History of tobacco use VA-TOBACCO USE CO UNSEL NO 07/27/2019 [facility] History of tobacco use QUIT TOBACCO >12 MO and <7 YRS AGO 11/21/2015 [facility] History of tobacco use CURRENT TOBACCO USER 01/28/2015 [facility] History of tobacco use QUIT TOBACCO >12 MO and <7 YRS AGO 12/27/2011 [facility] This section is an empty social history section. DoD Assessment and Plan Combined list of future care activities from Department of Defense and Veterans Affairs facilities (e.g., assessment and plan notes, appointments, orders, and referrals). Additional future care activities may be listed in the Plan of Care section. Result Assessment and Plan Date Source Assessment and Plan No data available for this section 05/15/2025 Ambulatory Pharmacy Plan of Care List of future care activities from Department of Veterans Affairs facilities. Additional future care activities may be listed in the Assessment and Plan section. Date/Time Care Activity Care Activity Detail Facili ty 07/02/2025 AMBULATORY - REHAB MEDICINE AMBULATORY - REHAB MEDICINE [facility] Functional Status Combined list of recent functional and cognitive assessments recorded at Department of Defense and Veterans Affairs (VA).VA Functional [place] Measurement (FIM) Scale: 1 = Total Assistance (Subject = 0% +), 2 = Maximal Assistance (Subject = 25% +), 3 = Moderate Assistance (Subject = 50% +), 4 = Minimal Assistance (Subject = 75% +), 5 = Supervision, 6 = Modified [place] (Device), 7 = Complete [place] (Timely, Safely). Assessment Date/Time Source Assessment Type Assessment Skill Assessment Score Assessment Details No data available for this section
--- OUTSIDE RECORDS SUMMARY | 2025-05-15 16:47 | XMS_ITS | Continuity of Care Document ---
[facility] Organization [facility] Address [id number] [place] [address] [address] [place] [address] Phone Care Team Providers Care Wireless Watcher Name Role Phone Valeria Peters Unavailable Unavailable Procedures Procedure Date Eye Exam Established Pt Advance Directives Directive Yes / No Effective Date File Name No Information Encounters Encounter Description Practice Location Reason(s) For Visit Diagnoses Date Provider Providers Copied on Encounter [facility], [id number] [place] [address] [address], [place], [place], [id number], [place] tel:[phone] [facility] No Information 0 Lorraine Shaw. [address] , [address], [place], [address], [place]. tel:[phone] Family History Family Member Type Diagnosis Age At Onset No Information Payers Payer name Insurance type Covered libertarian ID Authoriza tion(s) No Information Social History Type Description Quantity Date Captured Comments Sex Male Smoking Status No Information Chief Complaint And Reason For Visit No Information Reason For Referral Reason For Referral No Information History Of Present Illness Encounter Date Complaint History Of Prese nt Illness No Information Functional Status Date Functional Assessmen t No Information Instructions Date Instruction Additional Infor mation No Information Assessments Type Assessment Date No Information Patient Care Teams Name Effective Dates (start - stop) Status Members No Information
[2025-05-15 16:54] LABS: Hematocrit 43.9 % (42.0-52.0); Hemoglobin 15.1 g/dL (14.0-18.0); Immature Granulocyte Percent A 0.2 % (0-0.5); Lymphocytes Absolute Auto 1.84 K/mm3 (0.9-3.2); Mean Corpuscular HGB Conc 34.4 g/dl (32-36); Mean Corpuscular Hemoglobin 31.7 pg (26-34); Mean Corpuscular Volume 92.2 fl (80-100); Nucleated Red Blood Cells Absolute Auto 0.000 K/mm3 (0.0-0.012); Nucleated Red Blood Cells Perc 0.0 % (0.0-0.2); Platelet Count Result 228 k/mm3 (150-375); Red Blood Count 4.76 M/mm3 (4.6-6.20); White Blood Count 6.5 K/mm3 (4.5-10.0)
[2025-05-15 17:15] LABS: Alanine Aminotransferase 58 U/L (6-50); Albumin Level 4.4 g/dL (3.5-5.1); Alkaline Phosphatase 67 U/L (38-126); Anion Gap 9 mmol/L (4-12); Aspartate Amino Transferase 41 U/L (17-59); Bilirubin,Total 0.5 mg/dL (0.2-1.3); Blood Urea Nitrogen 20 mg/dL (9-20); Calcium 9.6 mg/dL (8.4-10.2); Carbon Dioxide 25 mmol/L (22-30); Chloride 106 mmol/L (98-107); Estimated Glomerular Filt Rate > 60; Glucose 95 mg/dL (65-110); Potassium 4.3 mmol/L (3.4-5.0); Sodium 140 mmol/L (137-145); Total Protein 7.7 g/dL (6.3-8.2)
== END 2025-05-15 16:44 | disposition home or self-care (01) ==
LOC: ANHLAB 16:45
PROVIDERS: PCP Family Medicine; Visit Provider Physician Assistant Surgical
DX: M16.11 Unilateral primary osteoarthritis, right hip (principal); Z79.1 Long term (current) use of non-steroidal anti-inflammatories (NSAID)
CPT/HCPCS: 36415; 80053; 85025

== ENCOUNTER 2025-06-11 15:28 | Outpatient (CLI) | payer OTHER, SELFPAY ==
--- NOTE | ~2025-06-11 | XR_ITS ---
XR cervical spine 4-5V Indication: M54.12 - Radiculopathy, cervical region Comparison: None Findings: Grade 1 retrolisthesis C2 on C3 C3 on C4, no fracture is identified. There is no acute fracture, no subluxation with flexion and extension. Mild dextroconvex scoliosis. Mild osteopenia. Severe loss of disc height throughout. Soft tissues unremarkable Impression: No acute abnormality. Reviewed, dictated and finalized at location A. Impression: No acute abnormality.
== END 2025-06-11 15:29 | disposition home or self-care (01) ==
PROVIDERS: PCP Family Medicine; Visit Provider Neurological Surgery
DX: M54.12 Radiculopathy, cervical region (principal)
CPT/HCPCS: 72050